=== PATIENT | female | born 1980 | race Caucasian/White ===

== ENCOUNTER 2017-02-25 09:28 | Observation (INO) | payer MEDICAID ==
[2017-02-25] MEDS ORDERED: RINGERS SOLUTION,LACTATED 1,000 ML IV PRN (10:51)
[2017-02-25] MEDS ORDERED: NA PHOS,M-B/NA PHOS,DI-BA (ADULT) 133 ML ENEMA PR ONE ×2 (10:56→12:00)
[2017-02-25] MEDS ORDERED: BETAMET ACET/BETAMET NA INJ 6 MG/1 ML ONE (12:17)
[2017-02-25] MEDS ORDERED: MORPHINE SULFATE 10 MG/ML INJ ONE (12:17)
[2017-02-25 12:55] LABS: APPEARANCE,URINE CLEAR; BILIRUBIN,URINE NEGATIVE (NEGATIVE); GLUCOSE, URINE NEGATIVE (NEGATIVE); KETONES,URINE 20 mg/dL (NEGATIVE); LEUKOCYTE ESTERASE,URINE NEGATIVE (NEGATIVE); NITRITE,URINE NEGATIVE (NEGATIVE); PROTEIN,URINE NEGATIVE (NEGATIVE); URINE SPECIFIC GRAVITY 1.004; UROBILINOGEN,URINE NEGATIVE mg/dL (<2.0)
[2017-02-25 13:10] LABS: URINE BARBITURATES SCREEN NEGATIVE; URINE METHADONE SCREEN NEGATIVE; URINE OPIATES LOW NEGATIVE; URINE PHENCYCLIDINE SCREEN NEGATIVE
[2017-02-25] MEDS ORDERED: MAGNESIUM SULFATE 100 ML IV ONE (13:50)
--- NOTE | 2017-02-25 13:52 | L&D Progress Notes ---
PROGRESS NOTES Datetime Report Generated by CPN: 02/25/2017 13:52 PROGRESS NOTE Impression: Labor Comment: Pt notes contractions still strong-will start magnesium for tocolysis and neuroprophylaxis as well as gbs prophylaxis and get admit labs. UA was nl and wet prep unremarkable. Discusse transfer if painful contractions persist. SIGNATURE SIGNATURE: [id number] Signature: with User ID: [email or web address]
[2017-02-25] MEDS ORDERED: AMPICILLIN SODIUM 2 GM in NORMAL SALINE 100 ML IV ONE (13:54)
[2017-02-25] MEDS ORDERED: MORPHINE SULFATE 10 MG/ML INJ IV ONE (14:00)
[2017-02-25] MEDS ORDERED: BETAMET ACET/BETAMET NA INJ 6 MG/1 ML IM ONE (14:00)
[2017-02-25] MEDS ORDERED: MAGNESIUM SULFATE 4 GM/100 ML RTUPB IV ONE (14:04)
[2017-02-25] MEDS ORDERED: AMPICILLIN SOD INJ 2 GM VIAL ONE (14:05)
[2017-02-25] MEDS ORDERED: LIDOCAINE 2% JELLY 5 ML TUBE ONE (14:07)
[2017-02-25 14:10] LABS: CHLAM PCR NOT DETECTED (NOT DETECT)
[2017-02-25 14:36] LABS: ABSOLUTE EOSINOPHILS # (AUTO) 0.2 10^3/uL (0.0-0.6); ABSOLUTE LYMPHOCYTES (AUTO) 1.3 10^3/uL (0.5-4.7); ABSOLUTE MONOCYTES (AUTO) 0.5 10^3/uL (0.1-1.4); BASOPHILS % (AUTO) 0.2 % (0-2); EOSINOPHILS % (AUTO) 1.6 % (0-6); HEMATOCRIT 29.3 % (36.0-47.0); HEMOGLOBIN 9.6 g/dL (12.0-15.5); HGB HCT DIFFERENCE -0.5; LYMPHOCYTES % (AUTO) 13.5 % (13-45); MEAN CORPUSCULAR HGB CONC 32.7 g/dL (32.0-36.0); MEAN CORPUSCULAR VOLUME 83 fl (80-97); MONOCYTES % (AUTO) 4.6 % (3-13); RED BLOOD COUNT 3.55 10^6/uL (3.72-5.28); RED CELL DISTRIBUTION WIDTH 14.4 % (11.5-14.0); SEGMENTED NEUTROPHILS % (AUTO) 80.1 % (42-78)
[2017-02-25] MEDS ORDERED: ONDANSETRON HCL INJ/PF 4 MG/2 ML SDV ONE ×2 (14:48→20:44)
[2017-02-25] MEDS: MAGNESIUM SULFATE 500 ML IV PRN (15:01)
[2017-02-25] MEDS: RINGERS SOLUTION,LACTATED 1,000 ML IV PRN (15:03)
[2017-02-25] MEDS ORDERED: LIDOCAINE 2% JELLY 5 ML TUBE TOP ONE (15:30)
--- NOTE | 2017-02-25 17:11 | RADIOLOGY REPORT (SQ) ---
EXAM DESCRIPTION: U/S OB LIMITED COMPLETED DATE/TIME: 02/25/2017 4:51 pm REASON FOR STUDY: 28wk IUP, Ctx, Cervical length COMPARISON: None. TECHNIQUE: Limited transvaginal grayscale ultrasound for evaluation of specific requested obstetrica l parameters. LIMITATIONS: None. FINDINGS: CERVICAL LENGTH: 5.0 cm Closed. ELYSIA: Not performed. FHR: Not evaluated. PRESENTATION: Not evaluated. OTHER: No other significant findings. IMPRESSION: Limited transvaginal ultrasound demonstrating a closed cervix measuring 5.0 cm. Trimester of : Reportedly third trimester - 28 weeks to delivery, although not assessed on t mariangel's examination. TECHNICAL DOCUMENTATION: JOB ID: [id number] [employer]- All Rights Reserved
[2017-02-25] MEDS ORDERED: AMPICILLIN SOD INJ 1 GM VIAL ONE (18:44)
[2017-02-25] MEDS: AMPICILLIN SODIUM 1 GM in NORMAL SALINE 50 ML IV SCH ×2 (18:50→22:04)
[2017-02-25] MEDS ORDERED: ACETAMINOPHEN 325 MG TABLET ONE (19:22)
[2017-02-25] MEDS: ACETAMINOPHEN 325 MG TABLET PO PRN (19:22)
[2017-02-25] MEDS: ONDANSETRON HCL INJ/PF 4 MG/2 ML SDV IV PRN (20:42)
[2017-02-25] MEDS ORDERED: ZOLPIDEM TARTRATE 5 MG TABLET PO PRN (21:51)
[2017-02-25] MEDS ORDERED: ZOLPIDEM TARTRATE 5 MG TABLET ONE (22:01)
[2017-02-26] MEDS: MAGNESIUM SULFATE 500 ML IV PRN ×2 (00:02→09:55)
[2017-02-26] MEDS: ACETAMINOPHEN 325 MG TABLET PO PRN ×2 (01:05→07:57)
[2017-02-26] MEDS ORDERED: ACETAMINOPHEN 325 MG TABLET ONE ×2 (01:07→07:48)
[2017-02-26] MEDS ORDERED: ONDANSETRON HCL INJ/PF 4 MG/2 ML SDV ONE ×2 (02:09→07:49)
[2017-02-26] MEDS: AMPICILLIN SODIUM 1 GM in NORMAL SALINE 50 ML IV SCH ×4 (02:12→14:24)
[2017-02-26] MEDS: ONDANSETRON HCL INJ/PF 4 MG/2 ML SDV IV PRN (02:12)
[2017-02-26] MEDS: RINGERS SOLUTION,LACTATED 1,000 ML IV PRN (05:41)
[2017-02-26] MEDS ORDERED: PROCHLORPERAZINE EDISYLATE INJ 10 MG/2 ML VIAL IV ONE (10:00)
[2017-02-26] MEDS ORDERED: BETAMET ACET/BETAMET NA INJ 6 MG/1 ML ONE (12:25)
[2017-02-26] MEDS ORDERED: BETAMET ACET/BETAMET NA INJ 6 MG/1 ML IM PRN (12:30)
[2017-02-26 14:48] VITALS: BP 84/48
--- NOTE | 2017-03-16 01:29 | HISTORY AND PHYSICAL E ---
History and Physical NAME: LOIS LYNNE : 1980 AGE: 36Y ADMITTED: 02/25/2017 ROOM: LR200 CHIEF COMPLAINT: Painful contractions. HISTORY OF PRESENT ILLNESS: This is a 36-year-old, G7, P4-0-2-4 with EDC of 05/18/2017, who was admitted at 28 weeks and 2 days. She had very regular contractions that palpated strong. REVIEW OF SYSTEMS: Unremarkable. PAST MEDICAL HISTORY: Significant for 4 vaginal deliveries. OBJECTIVE: For vital signs, see computer-generated record. The heart tones were category 1. Contractions were every 2-3 minutes initially. Abdomen was soft and nontender between contractions. The patient was slightly anemic on admission with hemoglobin of 9.6 and hematocrit of 29.3. Her urinalysis was negative for infection. Wet prep showed no trich or yeast. Her urine tox screen was negative. Her gonorrhea and chlamydia testing were negative. IMPRESSION: Intrauterine at 28 weeks and 2 days. PLAN: The patient was admitted and given tocolysis and neuro prophylaxis with magnesium, steroids for lung maturity, and GBS prophylaxis. She was informed of the possible need for transfer, should significant cervical change arise. DICTATING PHYSICIAN: MINI PAREDES M.D. [id number] PHY#: [id number] ID: [id number] JOB#: [id number] ACCT: [id number] cc:MINI PAREDES M.D. > MTDD
--- NOTE | 2017-04-11 16:57 | DISCHARGE SUMMARY E ---
Discharge Summary NAME: LOIS LYNNE : 1980 AGE: 36Y ADMITTED: 02/25/2017 DISCHARGED: 02/26/2017 REASON FOR ADMISSION: A 28-week 2-day intrauterine with labor. HISTORY AND PHYSICAL: See Dr. Hartmann's history and physical from February 25, 2017 for full details. HOSPITAL COURSE: The patient is admitted to the hospital at 28 weeks and 2 days with strong regular uterine contractions. She was admitted for labor. She was started on magnesium sulfate and given Celestone steroid for lung maturity. She was maintained on the magnesium sulfate for 24 hours, which resolved her contractions. She received her second dose of Celestone. Following this patient reports no more contractions and has had no cervical change during her stay at the hospital. She is stable and, therefore, is discharged home. DISCHARGE INSTRUCTIONS: Discharge patient home. Diet is regular. Level of activity is home rest and pelvic rest. Follow-up interval is 1 week with [facility]. SPECIAL INSTRUCTIONS: Patient instructed to call MD if vaginal bleeding, loss of fluid or signs and symptoms of labor occur. MEDICATIONS ON DISCHARGE: vitamins. DICTATING PHYSICIAN: Sixto Egan DO [id number] PHY#: [id number] ID: [id number] JOB#: [id number] ACCT: [id number] cc:MIIN HARTMANN M.D. Sixto Egan D.O. >
== END 2017-02-26 15:21 | disposition home or self-care (01) ==
LOC: LC 09:28 → LR 14:50
PROVIDERS: ADMIT Specialist; ATTEND Specialist
PROC: 4A0HXCZ Measurement of Products of Conception, Cardiac Rate, External Approach (ICD-10-PCS; principal; 2017-02-25)
DX: O60.03 Preterm labor without delivery, third trimester (principal); Z3A.28 28 weeks gestation of pregnancy
CPT/HCPCS: 94760; 86900; 86901; 36415; 87210; 86850; 85025; 86592; 81001; 87081; 80307; 87491; 87591; 76815; 59025; G0378 ×2; G0379; J3475; J0290 ×3; J3490 ×5; J2270; J0702 ×2; J0780; J2405 ×2

== ENCOUNTER 2017-02-28 16:16 | Outpatient (CLI) | payer MEDICAID ==
[2017-02-28 16:45] LABS: APPEARANCE,URINE CLEAR; BILIRUBIN,URINE NEGATIVE (NEGATIVE); GLUCOSE, URINE NEGATIVE (NEGATIVE); KETONES,URINE NEGATIVE (NEGATIVE); LEUKOCYTE ESTERASE,URINE NEGATIVE (NEGATIVE); NITRITE,URINE NEGATIVE (NEGATIVE); PROTEIN,URINE NEGATIVE (NEGATIVE); URINE SPECIFIC GRAVITY 1.028
[2017-02-28] MEDS ORDERED: RINGERS SOLUTION,LACTATED 1,000 ML IV ONE (16:55)
[2017-02-28] MEDS ORDERED: RINGERS SOLUTION,LACTATED 1,000 ML IV PRN (16:55)
[2017-02-28 17:07] LABS: URINE BARBITURATES SCREEN NEGATIVE; URINE METHADONE SCREEN NEGATIVE; URINE OPIATES LOW NEGATIVE; URINE PHENCYCLIDINE SCREEN NEGATIVE
[2017-02-28 17:17] LABS: AMNISURE (ROM) NEGATIVE (NEGATIVE)
--- NOTE | 2017-02-28 18:01 | RADIOLOGY REPORT (SQ) ---
EXAM DESCRIPTION: U/S OB LIMITED COMPLETED DATE/TIME: 02/28/2017 5:53 pm REASON FOR STUDY: iup 28+5 abdominal pain- cx length, presentation, elysia COMPARISON: 02/25/2017 TECHNIQUE: Limited transvaginal grayscale ultrasound for evaluation of specific requested obstetrica l parameters. LIMITATIONS: None. FINDINGS: CERVICAL LENGTH: 4.6 cm Closed. ELYSIA: 14.3 cm cm. FHR: 132 beats per minute. PRESENTATION: Breech OTHER: No other significant findings. IMPRESSION: LIMITED OBSTETRICAL ULTRASOUND WITH MEASURED PARAMETERS DELINEATED ABOVE. Trimester of : Third trimester - 28 weeks to delivery. TECHNICAL DOCUMENTATION: JOB ID: [id number] [employer]- All Rights Reserved
== END 2017-02-28 19:22 | disposition home or self-care (01) ==
LOC: LC 16:16
PROVIDERS: ATTEND Specialist
PROC: 4A1HXCZ Monitoring of Products of Conception, Cardiac Rate, External Approach (ICD-10-PCS; principal; 2017-02-28)
DX: O26.893 Other specified pregnancy related conditions, third trimester (principal); R10.9 Unspecified abdominal pain; O09.523 Supervision of elderly multigravida, third trimester; Z3A.28 28 weeks gestation of pregnancy
CPT/HCPCS: 76815; 80307; 81001; 84112; 87210

== ENCOUNTER 2017-03-16 16:09 | Outpatient (CLI) | payer MEDICAID ==
[2017-03-16 17:12] LABS: APPEARANCE,URINE CLEAR; BILIRUBIN,URINE NEGATIVE (NEGATIVE); GLUCOSE, URINE NEGATIVE (NEGATIVE); KETONES,URINE 80 mg/dL (NEGATIVE); LEUKOCYTE ESTERASE,URINE NEGATIVE (NEGATIVE); NITRITE,URINE NEGATIVE (NEGATIVE); PROTEIN,URINE NEGATIVE (NEGATIVE); URINE SPECIFIC GRAVITY 1.003; UROBILINOGEN,URINE NEGATIVE mg/dL (<2.0)
[2017-03-16 17:33] LABS: URINE BARBITURATES SCREEN NEGATIVE; URINE METHADONE SCREEN NEGATIVE; URINE OPIATES LOW NEGATIVE; URINE PHENCYCLIDINE SCREEN NEGATIVE
[2017-03-16] MEDS ORDERED: NIFEDIPINE 10 MG CAPSULE ONE (19:42)
--- NOTE | 2017-03-16 21:35 | Non Stress Test Report ---
Non Stress Test Datetime Report Generated by CPN: 03/16/2017 21:35 DEMOGRAPHIC Test Number: 1 EGA NST: 31.0 INDICATION Indication for Study: Ordered by Provider MONITORING Monitor Explained: Monitor Explained; Test Explained; Patient Verbalized Understanding Time on Monitor: 03/16/2017 16:32 Time off Monitor: 03/16/2017 21:06 NST Duration: 274 NST INTERVENTIONS NST Interventions: PO Hydration; Reposition Patient Physician Notified NST: Dr. Sousa BABY A: [id number] BABY A Movement : Present Contraction Frequency : 2-6 FHR Baseline : 125 Accelerations : 15X15 Variability : Moderate 6-25bpm NST Review: Meets Criteria for Reactive NST NST Review and Verified By : YAMILETH Dowd Results: Reactive NST COMMENTS NST Comments: Per Dr. Sousa do NST due to pt jemal. NST REPORT Report Trigger: Send Report
--- NOTE | 2017-03-16 23:47 | RADIOLOGY REPORT (SQ) ---
EXAM DESCRIPTION: U/S OB LIMITED COMPLETED DATE/TIME: 03/16/2017 6:53 pm REASON FOR STUDY: cervical length pre term contractions COMPARISON: None. TECHNIQUE: Limited transvaginal and transabdominal grayscale ultrasound for evaluation of specific r equested obstetrical parameters. LIMITATIONS: None. FINDINGS: CERVICAL LENGTH: 4.6 cm Closed. ELYSIA: Not performed FHR: 133 beats per minute. PRESENTATION: Transverse. OTHER: No other significant findings. IMPRESSION: LIMITED OBSTETRICAL ULTRASOUND WITH MEASURED PARAMETERS DELINEATED ABOVE. Trimester of : Third trimester - 28 weeks to delivery. TECHNICAL DOCUMENTATION: JOB ID: [id number] [employer]- All Rights Reserved
== END 2017-03-16 21:21 | disposition home or self-care (01) ==
LOC: LC 16:09
PROVIDERS: ATTEND Student in an Organized Health Care Education/Training Program
DX: O47.03 False labor before 37 completed weeks of gestation, third trimester (principal); R10.9 Unspecified abdominal pain; Z3A.31 31 weeks gestation of pregnancy
CPT/HCPCS: 59025; 81001; 80307; 76815; J3490

== ENCOUNTER 2017-03-30 14:15 | Outpatient (CLI) | payer MEDICAID | END 2017-03-30 15:59 | disposition home or self-care (01) | LOC: LC 14:15 | PROVIDERS: ATTEND Obstetrics & Gynecology | PROC: 4A1HXCZ Monitoring of Products of Conception, Cardiac Rate, External Approach (ICD-10-PCS; principal; 2017-03-30) | DX: O40.3XX0 Polyhydramnios, third trimester, not applicable or unspecified (principal); O09.523 Supervision of elderly multigravida, third trimester; O09.293 Supervision of pregnancy with other poor reproductive or obstetric history, third trimester; O47.03 False labor before 37 completed weeks of gestation, third trimester; Z3A.33 33 weeks gestation of pregnancy | CPT/HCPCS: 59025 ==

== ENCOUNTER 2017-04-13 11:11 | Outpatient (CLI) | payer MEDICAID ==
--- NOTE | 2017-04-13 11:44 | Non Stress Test Report ---
Non Stress Test Datetime Report Generated by CPN: 04/13/2017 11:43 DEMOGRAPHIC EGA NST: 35.0 EGA NST: 33.0 INDICATION Indication for Study: Polyhydramnios; Diabetes Mellitus; Other Indication for Study: Polyhydramnios; Ordered by Provider Indication for Study (NST) Other: AMA VITAL SIGNS Temperature - NST: 99.5 Pulse - NST: 83 NBPSYS NST: 100 NBPDIA NST: 54 MONITORING Monitor Explained: Monitor Explained; Test Explained; Patient Verbalized Understanding Monitor Explained: Monitor Explained; Test Explained; Patient Verbalized Understanding Time on Monitor: 04/13/2017 11:23 Time on Monitor: 03/30/2017 14:30 Time off Monitor: 04/13/2017 11:43 Time off Monitor: 03/30/2017 15:43 NST Duration: 20 NST Duration: 73 NST INTERVENTIONS NST Interventions: PO Hydration; Reposition Patient NST Interventions: None Physician Notified NST: Dr Egan Physician Notified NST: AAta Emmel CNM BABY A: [id number] BABY A Movement : Present Movement : Present Movement : Present Contraction Frequency : x1 Contraction Frequency : 0 FHR Baseline : 135 FHR Baseline : 135 Accelerations : 15X15 Accelerations : 15X15 Decelerations : None Decelerations : None Variability : Moderate 6-25bpm Variability : Moderate 6-25bpm Variability : Moderate 6-25bpm NST Review: Meets Criteria for Reactive NST NST Review: Meets Criteria for Reactive NST NST Review: Meets Criteria for Reactive NST NST Review and Verified By : Vaughn Candelaria [facility] NST Review and Verified By : Vaughn Candelaria [facility] NST Results: Reactive NST Results: Reactive NST COMMENTS NST Comments: -per CNM ok for d/c -D/C instructions given to pt including [place] [employer]. Pt v/u and had no further questions at this time NST REPORT Report Trigger: Send Report
== END 2017-04-13 11:47 | disposition home or self-care (01) ==
LOC: LC 11:11
PROVIDERS: ATTEND Obstetrics & Gynecology
PROC: 4A1HXCZ Monitoring of Products of Conception, Cardiac Rate, External Approach (ICD-10-PCS; principal; 2017-04-13)
DX: O40.3XX0 Polyhydramnios, third trimester, not applicable or unspecified (principal); O24.419 Gestational diabetes mellitus in pregnancy, unspecified control; Z3A.35 35 weeks gestation of pregnancy
CPT/HCPCS: 59025

== ENCOUNTER → 2017-04-17 | Outpatient (CLI) | payer MEDICAID ==
[2017-04-17 17:57] LABS: ABSOLUTE EOSINOPHILS # (AUTO) 0.1 10^3/uL (0.0-0.6); ABSOLUTE LYMPHOCYTES (AUTO) 1.7 10^3/uL (0.5-4.7); ABSOLUTE MONOCYTES (AUTO) 0.6 10^3/uL (0.1-1.4); ABSOLUTE NEUT (AUTO) 4.4 10^3/uL (1.7-8.2); BASOPHILS % (AUTO) 0.3 % (0-2); EOSINOPHILS % (AUTO) 1.8 % (0-6); HEMATOCRIT 27.4 % (36.0-47.0); HGB HCT DIFFERENCE -0.4; LYMPHOCYTES % (AUTO) 24.6 % (13-45); MEAN CORPUSCULAR HEMOGLOBIN 25.2 pg (27.0-33.4); MEAN CORPUSCULAR HGB CONC 32.9 g/dL (32.0-36.0); MEAN CORPUSCULAR VOLUME 77 fl (80-97); MONOCYTES % (AUTO) 8.7 % (3-13); RED BLOOD COUNT 3.58 10^6/uL (3.72-5.28); RED CELL DISTRIBUTION WIDTH 15.5 % (11.5-14.0); SEGMENTED NEUTROPHILS % (AUTO) 64.6 % (42-78); WHITE BLOOD COUNT 6.9 10^3/uL (4.0-10.5)
[2017-04-17 18:19] LABS: ALANINE AMINOTRANSFERASE 26 U/L (9-52); ALBUMIN 3.3 g/dL (3.5-5.0); ALKALINE PHOSPHATASE 119 U/L (38-126); ANION GAP 7 (5-19); ASPARTATE AMINO TRANSFERASE 18 U/L (14-36); BILIRUBIN,DIRECT 0.3 mg/dL (0.0-0.4); BILIRUBIN,TOTAL 0.3 mg/dL (0.2-1.3); BLOOD UREA NITROGEN 7 mg/dL (7-20); CALCIUM 9.3 mg/dL (8.4-10.2); CARBON DIOXIDE 22 mmol/L (22-30); CHLORIDE 103 mmol/L (98-107); GLUCOSE 92 mg/dL (75-110); LDH 308 U/L (313-618); POTASSIUM 3.8 mmol/L (3.6-5.0); SODIUM 132.1 mmol/L (137-145); TOTAL PROTEIN 5.9 g/dL (6.3-8.2)
[2017-04-17 18:30] LABS: URINE CREATININE 59.3 mg/dL (16-327); URINE PROTEIN 8.2 mg/dL (<12)
[2017-04-18 11:59] LABS: CHLAM PCR NOT DETECTED (NOT DETECT)
== END ==
LOC: OD 17:04
PROVIDERS: ATTEND Specialist
DX: Z36 Encounter for antenatal screening of mother (principal); O14.93 Unspecified pre-eclampsia, third trimester
CPT/HCPCS: 36415; 80053; 82570; 83615; 84156; 84550; 85025; 87081; 87491; 87591

== ENCOUNTER 2017-04-23 07:41 | Outpatient (CLI) | payer MEDICAID ==
[2017-04-23 08:30] LABS: APPEARANCE,URINE CLEAR; BILIRUBIN,URINE NEGATIVE (NEGATIVE); GLUCOSE, URINE NEGATIVE (NEGATIVE); KETONES,URINE 80 mg/dL (NEGATIVE); LEUKOCYTE ESTERASE,URINE NEGATIVE (NEGATIVE); NITRITE,URINE NEGATIVE (NEGATIVE); PROTEIN,URINE NEGATIVE (NEGATIVE); URINE SPECIFIC GRAVITY 1.005; UROBILINOGEN,URINE NEGATIVE mg/dL (<2.0)
[2017-04-23 08:59] LABS: URINE BARBITURATES SCREEN NEGATIVE; URINE METHADONE SCREEN NEGATIVE; URINE OPIATES LOW NEGATIVE; URINE PHENCYCLIDINE SCREEN NEGATIVE
[2017-04-23] MEDS ORDERED: HYDROXYZINE PAMOATE 50 MG CAPSULE ONE (09:22)
--- NOTE | 2017-04-23 09:49 | Non Stress Test Report ---
Non Stress Test Datetime Report Generated by CPN: 04/23/2017 09:48 DEMOGRAPHIC EGA NST: 36.3 INDICATION Indication for Study: Decreased Movement; Polyhydramnios; Other Indication for Study (NST) Other: contractions MONITORING Monitor Explained: Monitor Explained; Test Explained; Patient Verbalized Understanding Time on Monitor: 04/23/2017 08:24 Time off Monitor: 04/23/2017 09:33 Time off Monitor: 04/23/2017 09:33 NST Duration: 69 NST INTERVENTIONS NST Interventions: PO Hydration; Reposition Patient Physician Notified NST: Arnulfo BABY A: [id number] BABY A Movement : Present Contraction Frequency : 4-10 Contraction Frequency : 4-10 FHR Baseline : 115 Accelerations : 15X15 Decelerations : None Variability : Moderate 6-25bpm NST Review: Meets Criteria for Reactive NST NST Review and Verified By : YAMILETH Pandya Results: Reactive NST REPORT Report Trigger: Send Report
== END 2017-04-23 09:40 | disposition home or self-care (01) ==
LOC: LC 07:41
PROVIDERS: ATTEND Obstetrics & Gynecology
PROC: 4A1HXCZ Monitoring of Products of Conception, Cardiac Rate, External Approach (ICD-10-PCS; principal; 2017-04-23)
DX: O36.8130 Decreased fetal movements, third trimester, not applicable or unspecified (principal); O40.3XX0 Polyhydramnios, third trimester, not applicable or unspecified; O47.03 False labor before 37 completed weeks of gestation, third trimester; O09.523 Supervision of elderly multigravida, third trimester; Z3A.36 36 weeks gestation of pregnancy
CPT/HCPCS: 59025; 80307; 81005; 82962

== ENCOUNTER 2017-04-24 16:52 | Outpatient (CLI) | payer MEDICAID ==
[2017-04-24 17:59] LABS: ABSOLUTE EOSINOPHILS # (AUTO) 0.1 10^3/uL (0.0-0.6); ABSOLUTE LYMPHOCYTES (AUTO) 1.5 10^3/uL (0.5-4.7); ABSOLUTE MONOCYTES (AUTO) 0.6 10^3/uL (0.1-1.4); ABSOLUTE NEUT (AUTO) 3.9 10^3/uL (1.7-8.2); BASOPHILS % (AUTO) 0.4 % (0-2); EOSINOPHILS % (AUTO) 1.5 % (0-6); HEMATOCRIT 25.3 % (36.0-47.0); HEMOGLOBIN 8.3 g/dL (12.0-15.5); HGB HCT DIFFERENCE -0.4; LYMPHOCYTES % (AUTO) 23.9 % (13-45); MEAN CORPUSCULAR HEMOGLOBIN 25.1 pg (27.0-33.4); MEAN CORPUSCULAR HGB CONC 32.6 g/dL (32.0-36.0); MEAN CORPUSCULAR VOLUME 77 fl (80-97); MONOCYTES % (AUTO) 10.3 % (3-13); RED CELL DISTRIBUTION WIDTH 15.5 % (11.5-14.0); SEGMENTED NEUTROPHILS % (AUTO) 63.9 % (42-78); WHITE BLOOD COUNT 6.2 10^3/uL (4.0-10.5)
[2017-04-24 18:02] LABS: AMORPHOUS SEDIMENT,URINE TRACE /HPF; APPEARANCE,URINE TURBID; BILIRUBIN,URINE SMALL (NEGATIVE); GLUCOSE, URINE NEGATIVE (NEGATIVE); KETONES,URINE NEGATIVE (NEGATIVE); LEUKOCYTE ESTERASE,URINE NEGATIVE (NEGATIVE); NITRITE,URINE NEGATIVE (NEGATIVE); PROTEIN,URINE 30 mg/dL (NEGATIVE); URINE SPECIFIC GRAVITY 1.032
[2017-04-24 18:16] LABS: URINE BARBITURATES SCREEN NEGATIVE; URINE METHADONE SCREEN NEGATIVE; URINE OPIATES LOW NEGATIVE; URINE PHENCYCLIDINE SCREEN NEGATIVE
[2017-04-24 18:27] LABS: ALANINE AMINOTRANSFERASE 19 U/L (9-52); ALBUMIN 2.9 g/dL (3.5-5.0); ALKALINE PHOSPHATASE 117 U/L (38-126); ANION GAP 9 (5-19); ASPARTATE AMINO TRANSFERASE 20 U/L (14-36); BILIRUBIN,DIRECT 0.3 mg/dL (0.0-0.4); BILIRUBIN,TOTAL 0.3 mg/dL (0.2-1.3); BLOOD UREA NITROGEN 8 mg/dL (7-20); CALCIUM 8.7 mg/dL (8.4-10.2); CARBON DIOXIDE 21 mmol/L (22-30); CHLORIDE 107 mmol/L (98-107); CREATININE RESULT 0.54 mg/dL (0.52-1.25); GLUCOSE 106 mg/dL (75-110); LDH 278 U/L (313-618); POTASSIUM 3.6 mmol/L (3.6-5.0); SODIUM 137.3 mmol/L (137-145); TOTAL PROTEIN 5.5 g/dL (6.3-8.2); URIC ACID 4.9 mg/dL (2.5-7.0)
[2017-04-24 18:55] LABS: URINE CREATININE 335.1 mg/dL (16-327)
[2017-04-24 19:00] LABS: URINE PROTEIN < 5.0 mg/dL (<12)
--- NOTE | 2017-04-24 19:19 | Non Stress Test Report ---
Non Stress Test Datetime Report Generated by CPN: 04/24/2017 19:19 DEMOGRAPHIC EGA NST: 36.4 INDICATION Indication for Study: Ordered by Provider Indication for Study (NST) Other: lc pih VITAL SIGNS Temperature - NST: 98.3 MONITORING Monitor Explained: Monitor Explained; Test Explained; Patient Verbalized Understanding Time on Monitor: 04/24/2017 17:00 Time off Monitor: 04/24/2017 19:07 NST Duration: 127 NST INTERVENTIONS NST Interventions: PO Hydration; Reposition Patient Physician Notified NST: Dr Egan BABY A: [id number] BABY A Movement : Present Contraction Frequency : rare FHR Baseline : 120 Accelerations : 15X15 Decelerations : None Variability : Moderate 6-25bpm NST Review: Meets Criteria for Reactive NST NST Review and Verified By : IGNACIO HANSON RN NST Results: Reactive NST REPORT Report Trigger: Send Report
== END 2017-04-24 19:25 | disposition home or self-care (01) ==
LOC: LC 16:52
PROVIDERS: ATTEND Obstetrics & Gynecology
PROC: 4A1HXCZ Monitoring of Products of Conception, Cardiac Rate, External Approach (ICD-10-PCS; principal; 2017-04-24)
DX: O14.93 Unspecified pre-eclampsia, third trimester (principal); Z3A.36 36 weeks gestation of pregnancy
CPT/HCPCS: 36415; 59025; 80053; 80307; 81001; 82570; 83615; 84156; 84550; 85025

== ENCOUNTER 2017-04-25 12:50 | Outpatient (CLI) | payer MEDICAID ==
[2017-04-25 14:30] LABS: APPEARANCE,URINE SLIGHTLY-CLOUDY; BILIRUBIN,URINE NEGATIVE (NEGATIVE); GLUCOSE, URINE NEGATIVE (NEGATIVE); KETONES,URINE NEGATIVE (NEGATIVE); LEUKOCYTE ESTERASE,URINE NEGATIVE (NEGATIVE); NITRITE,URINE NEGATIVE (NEGATIVE); PROTEIN,URINE NEGATIVE (NEGATIVE); URINE SPECIFIC GRAVITY 1.021
[2017-04-25 14:49] LABS: URINE BARBITURATES SCREEN NEGATIVE; URINE METHADONE SCREEN NEGATIVE; URINE OPIATES LOW NEGATIVE; URINE PHENCYCLIDINE SCREEN NEGATIVE
--- NOTE | 2017-04-25 16:25 | RADIOLOGY REPORT (SQ) ---
EXAM DESCRIPTION: U/S OB LIMITED COMPLETED DATE/TIME: 04/25/2017 4:11 pm REASON FOR STUDY: Polyhydramnios--ELYSIA, position,EFW COMPARISON: 03/16/2017, 02/28/2017, 02/25/2017 limited Ob ultrasound TECHNIQUE: Limited transabdominal grayscale ultrasound for evaluation of specific requested obstetri vee parameters. LIMITATIONS: None. FINDINGS: Estimated weight by multiple measurements is 3235 g, at the 63rd percentile for gest ational age of 38 weeks 0 days ELYSIA: 17.9 cm. FHR: 135 beats per minute. PRESENTATION: Cephalic. OTHER: No other significant findings. IMPRESSION: Amniotic fluid index 17.9 cm. Estimated weight 3235 g. Trimester of : Third trimester - 28 weeks to delivery. TECHNICAL DOCUMENTATION: JOB ID: [id number] [employer]- All Rights Reserved
--- NOTE | 2017-04-25 17:11 | XCELERA REPORT ---
[address] [address] Transthoracic Echocardiogram Report Name: LOIS LYNNE Age: 36 yrs Gender: Female : 1980 Patient Status: Outpatient Patient Location: Study Date: 04/25/2017 02:22 PM Height: 67 in Weight: 274 lb BSA: 2.3 m2 Procedure: A complete two-dimensional transthoracic echocardiogram was performed (2D, M-mode, spectral and color flow Doppler). The study was technically difficult with many images being suboptimal in quality. Reason For Study: SOB-increased edema Ordering Physician: DENNISE STERLING Performed By: Loretta Cortez Interpretation Summary The left ventricular ejection fraction is normal. Doppler measurements suggest normal left ventricular diastolic function There is mild concentric left ventricular hypertrophy. The left ventricle is grossly normal size. No regional wall motion abnormalities noted. The right ventricular systolic function is normal. The right atrium is normal in size The left atrial size is normal. There is a trace amount of mitral regurgitation There is no mitral valve stenosis. There is no aortic valve stenosis No aortic regurgitation is present. There is a trace or physiologic amount of tricuspid regurgitation Tricuspid regurgitation jet envelope not well defined to measure RV systolic pressure accurately. The aortic root is not well visualized but is probably normal size. The inferior vena cava was not well visualized There is no pericardial effusion. MMode/2D Measurements & Calculations RVDd: 2.7 cm LVIDd: 5.9 cmFS: 35.2 % Ao root diam: 2.8 cm IVSd: 1.1 cm LVIDs: 3.8 cmEDV(Teich): 170.3 ml LVPWd: 1.1 cmESV(Teich): 61.9 ml Ao root area: 6.4 cm2 EF(Teich): 63.7 % LVOT diam: 2.3 cm LVOT area: 4.2 cm2 Doppler Measurements & Calculations MV E max tammy: MV dec slope: Ao V2 max: LV V1 max P.4 cm/sec 394.0 cm/sec2 161.4 cm/sec 5.9 mmHg MV A max tammy: MV dec time: Ao max PG: LV V1 max: 60.3 cm/sec 0.20 sec 10.4 mmHg 121.7 cm/sec MV E/A: 1.3 WILFRED(V,D): 3.2 cm2 PA V2 max: TR max tammy: 81.9 cm/sec 186.2 cm/sec PA max PG: TR max P.9 mmHg 2.7 mmHg Left Ventricle The left ventricle is grossly normal size. There is mild concentric left ventricular hypertrophy. The left ventricular ejection fraction is normal. Doppler measurements suggest normal left ventricular diastolic function. No regional wall motion abnormalities noted. Right Ventricle The right ventricle is grossly normal size. There is normal right ventricular wall thickness. The right ventricular systolic function is normal. Atria The right atrium is normal in size. The left atrial size is normal. Interarterial septum not well visualized and not well dopplered. Cannot comment on ASD/PFO presence. Mitral Valve The mitral valve is grossly normal. There is no mitral valve stenosis. There is a trace amount of mitral regurgitation. Aortic Valve The aortic valve is grossly normal. There is no aortic valve stenosis. No aortic regurgitation is present. Tricuspid Valve The tricuspid valve is not well visualized, but is grossly normal. There is no tricuspid stenosis. There is a trace or physiologic amount of tricuspid regurgitation. Tricuspid regurgitation jet envelope not well defined to measure RV systolic pressure accurately. Pulmonic Valve The pulmonic valve is not well visualized. Great Vessels The aortic root is not well visualized but is probably normal size. The inferior vena cava was not well visualized. Effusions There is no pericardial effusion. : DENNISE STERLING Shyamal
--- NOTE | 2017-04-25 18:54 | Non Stress Test Report ---
Non Stress Test Datetime Report Generated by CPN: 04/25/2017 18:53 DEMOGRAPHIC EGA NST: 36.5 INDICATION Indication for Study: Ordered by Provider MONITORING Monitor Explained: Monitor Explained; Test Explained; Patient Verbalized Understanding Time on Monitor: 04/25/2017 13:28 Time off Monitor: 04/25/2017 14:04 NST Duration: 36 NST INTERVENTIONS NST Interventions: PO Hydration Physician Notified NST: Rausch BABY A: [id number] BABY A Movement : Present; Decreased Contraction Frequency : occasional FHR Baseline : 155 Accelerations : 15X15 Decelerations : None Variability : Moderate 6-25bpm NST Review: Meets Criteria for Reactive NST NST Review and Verified By : Beckie Hany RNC NST Results: Reactive NST REPORT Report Trigger: Send Report
--- NOTE | 2017-04-26 12:15 | XCELERA REPORT ---
[address] [address] Lower Extremity Venous Evaluation Name: LOIS LYNNE Age: 36 yrs Gender: Female : 1980 Patient Status: Outpatient Patient Location: Study Date: 04/25/2017 02:42 PM Procedure: Color flow and duplex imaging bilaterally of the veins of the lower extremities as well as the Common Femoral veins. Reason For Study: 36+6 SOB, left leg pain, pos farooq sign L leg Ordering Physician: DENNISE RAUSCH Performed By: Loretta Cortez Right Sided Venous Evaluation Normal vessel filling wall to wall, compression and augmentation as well as Colour flow down to the infrageniculate veins. Left Sided Venous Evaluation Normal vessel filling wall to wall, compression and augmentation as well as Colour flow down to the infrageniculate veins. Critical Findings Discussed with Dr Rausch. Interpretation Summary No duplex evidence of DVT or obstruction in the bilateral lower extremities. : DENNISE RAUSCH > Hua Li
== END 2017-04-25 18:25 | disposition home or self-care (01) ==
LOC: LC 12:50
PROVIDERS: ATTEND Obstetrics & Gynecology
PROC: 4A1HXCZ Monitoring of Products of Conception, Cardiac Rate, External Approach (ICD-10-PCS; principal; 2017-04-25)
DX: O40.3XX0 Polyhydramnios, third trimester, not applicable or unspecified (principal); O36.8130 Decreased fetal movements, third trimester, not applicable or unspecified; O99.89 Other specified diseases and conditions complicating pregnancy, childbirth and the puerperium; M79.605 Pain in left leg; O09.523 Supervision of elderly multigravida, third trimester; Z3A.36 36 weeks gestation of pregnancy
CPT/HCPCS: 59025; 76815; 80307; 81001; 93306; 93970; 94760

== ENCOUNTER 2017-04-27 16:32 | Inpatient (IN) | payer MEDICAID ==
[2017-04-27] MEDS ORDERED: RINGERS SOLUTION,LACTATED 1,000 ML IV ONE (17:14)
[2017-04-27 17:30] LABS: APPEARANCE,URINE CLEAR; BILIRUBIN,URINE NEGATIVE (NEGATIVE); GLUCOSE, URINE NEGATIVE (NEGATIVE); KETONES,URINE NEGATIVE (NEGATIVE); LEUKOCYTE ESTERASE,URINE TRACE (NEGATIVE); NITRITE,URINE NEGATIVE (NEGATIVE); PROTEIN,URINE NEGATIVE (NEGATIVE); URINE SPECIFIC GRAVITY 1.006; UROBILINOGEN,URINE NEGATIVE mg/dL (<2.0)
[2017-04-27 17:41] LABS: URINE BARBITURATES SCREEN NEGATIVE; URINE METHADONE SCREEN NEGATIVE; URINE OPIATES LOW NEGATIVE; URINE PHENCYCLIDINE SCREEN NEGATIVE
[2017-04-27 18:03] LABS: URINE CREATININE 52.4 mg/dL (16-327); URINE PROTEIN 8.5 mg/dL (<12)
[2017-04-27 18:12] LABS: ABSOLUTE EOSINOPHILS # (AUTO) 0.1 10^3/uL (0.0-0.6); ABSOLUTE LYMPHOCYTES (AUTO) 1.7 10^3/uL (0.5-4.7); ABSOLUTE MONOCYTES (AUTO) 0.6 10^3/uL (0.1-1.4); BASOPHILS % (AUTO) 0.4 % (0-2); EOSINOPHILS % (AUTO) 1.8 % (0-6); HEMATOCRIT 25.7 % (36.0-47.0); HEMOGLOBIN 8.4 g/dL (12.0-15.5); HGB HCT DIFFERENCE -0.5; LYMPHOCYTES % (AUTO) 25.7 % (13-45); MEAN CORPUSCULAR HEMOGLOBIN 25.1 pg (27.0-33.4); MEAN CORPUSCULAR HGB CONC 32.6 g/dL (32.0-36.0); MEAN CORPUSCULAR VOLUME 77 fl (80-97); RED BLOOD COUNT 3.33 10^6/uL (3.72-5.28); RED CELL DISTRIBUTION WIDTH 15.8 % (11.5-14.0); SEGMENTED NEUTROPHILS % (AUTO) 62.1 % (42-78); WHITE BLOOD COUNT 6.4 10^3/uL (4.0-10.5)
[2017-04-27 18:28] LABS: ALANINE AMINOTRANSFERASE 18 U/L (9-52); ALKALINE PHOSPHATASE 125 U/L (38-126); ANION GAP 9 (5-19); ASPARTATE AMINO TRANSFERASE 22 U/L (14-36); BILIRUBIN,DIRECT 0.4 mg/dL (0.0-0.4); BILIRUBIN,TOTAL 0.4 mg/dL (0.2-1.3); BLOOD UREA NITROGEN 6 mg/dL (7-20); CALCIUM 9.1 mg/dL (8.4-10.2); CARBON DIOXIDE 23 mmol/L (22-30); CHLORIDE 105 mmol/L (98-107); CREATININE RESULT 0.47 mg/dL (0.52-1.25); GLUCOSE 106 mg/dL (75-110); LDH 362 U/L (313-618); POTASSIUM 4.3 mmol/L (3.6-5.0); TOTAL PROTEIN 5.6 g/dL (6.3-8.2); URIC ACID 4.3 mg/dL (2.5-7.0)
[2017-04-27] MEDS ORDERED: ACETAMINOPHEN 325 MG TABLET ONE (19:35)
[2017-04-27] MEDS ORDERED: DINOPROSTONE 10 MG VAGINAL INSERT.SR ONE (19:36)
[2017-04-27] MEDS ORDERED: ACETAMINOPHEN 325 MG TABLET PO ONE (19:45)
[2017-04-27] MEDS ORDERED: ONDANSETRON HCL 8 MG TABLET PO ONE (21:15)
[2017-04-27] MEDS ORDERED: ONDANSETRON 4 MG TAB.RAPDIS ONE (21:19)
[2017-04-27] MEDS ORDERED: ONDANSETRON HCL 8 MG TABLET ONE (21:23)
[2017-04-27] MEDS ORDERED: ZOLPIDEM TARTRATE 5 MG TABLET PO ONE (23:29)
[2017-04-27] MEDS ORDERED: ZOLPIDEM TARTRATE 5 MG TABLET ONE (23:31)
[2017-04-28] MEDS: ACETAMINOPHEN 325 MG TABLET PO PRN ×3 (02:19→10:44)
[2017-04-28] MEDS ORDERED: ACETAMINOPHEN 325 MG TABLET ONE ×3 (02:20→10:36)
[2017-04-28] MEDS ORDERED: ONDANSETRON 4 MG TAB.RAPDIS PO ONE (04:38)
[2017-04-28] MEDS ORDERED: ONDANSETRON 4 MG TAB.RAPDIS ONE ×2 (04:43→10:36)
[2017-04-28] MEDS ORDERED: OXYTOCIN/NORMAL SALINE 20 UNIT/1,000 ML RTUINJ ONE ×2 (10:00→10:57)
[2017-04-28] MEDS ORDERED: ACETAMINOPHEN 325 MG TABLET PO PRN (10:37)
[2017-04-28] MEDS ORDERED: BENZOIN/ALOE VERA/STORAX/TOLU TINCTURE 60 ML TP ONE (10:38)
[2017-04-28] MEDS ORDERED: DIPHENHYDRAMINE HCL 50 MG/ML VIAL IV PRN (10:38)
[2017-04-28] MEDS ORDERED: FENTANYL/BUPIVACAINE/NS/PF 100 ML EPI PRN (10:38)
[2017-04-28] MEDS ORDERED: EPHEDRINE SULFATE INJ 50 MG/1 ML AMPULE IV PRN (10:38)
[2017-04-28] MEDS ORDERED: BUPIVACAINE HCL 0.25 % INJ/PF (2.5 MG/1 ML) 30 ML VIAL INFIL ONE (10:38)
[2017-04-28] MEDS ORDERED: FENTANYL/BUPIVACAINE/NS/PF 200 MCG/100 ML RTUINJ EPI PRN (10:56)
[2017-04-28] MEDS ORDERED: FENTANYL CITRATE INJ/PF 100 MCG/2 ML AMPUL ONE (10:57)
[2017-04-28] MEDS ORDERED: LIDOCAINE 1% INJ-PF (10 MG/ML) 30 ML SDV ONE (10:57)
[2017-04-28] MEDS ORDERED: MISOPROSTOL 0.2 MG TABLET ONE (10:57)
[2017-04-28] MEDS ORDERED: EPHEDRINE SULFATE INJ 50 MG/1 ML AMPULE ONE (10:57)
[2017-04-28] MEDS ORDERED: FENTANYL/BUPIVACAINE/NS/PF 200 MCG/100 ML RTUINJ EPI ONE (10:58)
[2017-04-28] MEDS ORDERED: PHENYLEPHRINE HCL INJ/PF 10 MG/1 ML SDV ONE (10:58)
[2017-04-28] MEDS ORDERED: BUPIVACAINE HCL 0.25 % INJ/PF (2.5 MG/1 ML) 30 ML VIAL ONE (10:58)
[2017-04-28] MEDS ORDERED: RINGERS SOLUTION,LACTATED 1,000 ML IV PRN (11:40)
[2017-04-28 12:25] LABS: ABSOLUTE EOSINOPHILS # (AUTO) 0.1 10^3/uL (0.0-0.6); ABSOLUTE LYMPHOCYTES (AUTO) 1.5 10^3/uL (0.5-4.7); ABSOLUTE MONOCYTES (AUTO) 0.6 10^3/uL (0.1-1.4); ABSOLUTE NEUT (AUTO) 4.4 10^3/uL (1.7-8.2); BASOPHILS % (AUTO) 0.6 % (0-2); EOSINOPHILS % (AUTO) 1.4 % (0-6); HEMATOCRIT 26.9 % (36.0-47.0); HEMOGLOBIN 8.6 g/dL (12.0-15.5); HGB HCT DIFFERENCE -1.1; LYMPHOCYTES % (AUTO) 22.8 % (13-45); MEAN CORPUSCULAR HEMOGLOBIN 24.8 pg (27.0-33.4); MEAN CORPUSCULAR HGB CONC 31.9 g/dL (32.0-36.0); MEAN CORPUSCULAR VOLUME 78 fl (80-97); MONOCYTES % (AUTO) 9.3 % (3-13); RED BLOOD COUNT 3.46 10^6/uL (3.72-5.28); RED CELL DISTRIBUTION WIDTH 15.7 % (11.5-14.0); SEGMENTED NEUTROPHILS % (AUTO) 65.9 % (42-78); WHITE BLOOD COUNT 6.7 10^3/uL (4.0-10.5)
[2017-04-28] MEDS ORDERED: ACETAMINOPHEN WITH CODEINE #3 TABLET ONE (15:59)
[2017-04-28] MEDS ORDERED: MEASLES,MUMPS&RUBELLA VACC/PF 0.5 ML VIAL SUBCUT PRN (18:23)
[2017-04-28] MEDS ORDERED: DIPH/PERTUSS(ACELL)/TETANUS VAC/PF 0.5 ML SYR (>=10YO) IM PRN (18:23)
[2017-04-28] MEDS ORDERED: BENZOCAINE/MENTHOL AEROSOL SPRAY 56 ML TOP PRN (18:23)
[2017-04-28] MEDS ORDERED: DIBUCAINE 1% OINTMENT 28 GM TP PRN (18:23)
[2017-04-28] MEDS ORDERED: ZOLPIDEM TARTRATE 5 MG TABLET PO PRN (18:23)
[2017-04-28] MEDS ORDERED: ACETAMINOPHEN WITH CODEINE #3 TABLET PO PRN (18:23)
[2017-04-28] MEDS ORDERED: OXYTOCIN/NORMAL SALINE 20 UNIT/1,000 ML RTUINJ IV PRN (18:23)
--- NOTE | 2017-04-28 18:23 | Admission Physical ---
Datetime Report Generated by CPN: 04/28/2017 18:23 CURRENT ADMISSION Hx Assessment: The History has been Reviewed and is Current Hx Assessment: The History has been Reviewed and is Current Chief Complaint: Signs/Symptoms Gestational HTN Chief Complaint: Other Chief Complaint Other: back pain and constipation-noted contractions after being here Indication for Induction: Gestational HTN; Maternal Diabetes Admit Plan: Admit to Unit; Initiate Labor Induction Protocol Admit Plan: Observation/Evaluation ALLERGIES Medication Allergies: Yes Medication Allergies: Milk Containing Products/SV/Sweats, Hives, (04/27/2017); aspirin (04/27/2017); albuterol/SV/Increased HR, i (04/27/2017); pseudoephedrine/SV/SOB, blacks out (04/27/2017); ibuprofen/SV/Swelling (04/27/2017); diphenhydramine/SV/Over sedation (04/27/2017); fexofenadine/SV/SOB, blacks out (04/27/2017) Medication Allergies: Milk Containing Products/SV/Sweats, Hives, (04/13/2017); aspirin (04/25/2017); albuterol/SV/Increased HR, i (04/13/2017); pseudoephedrine/SV/SOB, blacks out (04/13/2017); ibuprofen/SV/Swelling (04/13/2017); diphenhydramine/SV/Over sedation (04/13/2017); fexofenadine/SV/SOB, blacks out (04/13/2017) Medication Allergies: Milk Containing Products/SV/Sweats, Hives, (04/13/2017); albuterol/SV/Increased HR, i (04/13/2017); pseudoephedrine/SV/SOB, blacks out (04/13/2017); ibuprofen/SV/Swelling (04/13/2017); diphenhydramine/SV/Over sedation (04/13/2017); fexofenadine/SV/SOB, blacks out (04/13/2017) Medication Allergies: Milk Containing Products/SV/Sweats, Hives, (03/30/2017); albuterol/SV/Increased HR, i (03/30/2017); pseudoephedrine/SV/SOB, blacks out (03/30/2017); ibuprofen/SV/Swelling (03/30/2017); diphenhydramine/SV/Over sedation (03/30/2017); fexofenadine/SV/SOB, blacks out (03/30/2017) Medication Allergies: Milk Containing Products/SV/Sweats, Hives, (03/16/2017); albuterol/SV/Increased HR, i (03/16/2017); dang D/SV/SOB, blacks out (03/16/2017); ibuprofen/SV/Swelling (03/16/2017); diphenhydramine/SV/Over sedation (03/16/2017); fexofenadine/SV/SOB, blacks out (03/16/2017) Medication Allergies: Milk Containing Products/SV/Sweats, Hives, (02/28/2017); albuterol/SV/Increased HR, i (02/28/2017); pseudoephedrine/SV/SOB, blacks out (02/28/2017); ibuprofen/SV/Swelling (02/28/2017); diphenhydramine/SV/Over sedation (02/28/2017); fexofenadine/SV/SOB, blacks out (02/28/2017) Medication Allergies: Milk Containing Products/SV/Sweats, Hives, (02/25/2017); albuterol/SV/Increased HR, i (02/25/2017); pseudoephedrine/SV/SOB, blacks out (02/25/2017); ibuprofen/SV/Swelling (02/25/2017); diphenhydramine/SV/Over sedation (02/25/2017); fexofenadine/SV/SOB, blacks out (02/25/2017) Medication Allergies: Milk Containing Products/SV/Sweats, Hives, (06/06/2016); albuterol/SV/Increased HR, i (06/06/2016); pseudoephedrine/SV/SOB, blacks out (06/06/2016); ibuprofen/SV/Swelling (06/06/2016); diphenhydramine/SV/Over sedation (06/06/2016); fexofenadine/SV/SOB, blacks out (06/06/2016) Latex: No Latex Allergies Food Allergies: Milk, casen, whey Environmental Allergies: None OBSTETRICAL HISTORY EDC: 05/18/2017 00:00 : 7 Para: 4 Term: 4 : 0 SAB: 2 IAB: 0 Ectopic: 0 Livin Cesareans: 0 VBACs: 0 Multiple Births: 0 Gestational Diabetes: No Rh Sensitization: No Incompetent Cervix: No VISH: No Infertility: Yes ART Treatment: No Uterine Anomaly: No IUGR: No Hx Previous C/S: No Macrosomia: No Hx Loss/Stillborn: No PIH: Yes Hx : No Placenta Previa/Abruption: No Depression/PP Depression: No PTL/PROM: No Post Hemorrhage: No Current Procedures: Ultrasound Obstetrical History Comments: G1 - SAB D_C G2 - 2002 - IOL at 38wks, Fertility treatments, PreE, 8lbs 10oz G3 - 2006 - IOL at 38wks, Fertility treatments, Oligo, 7lbs 8oz G4 - 2012 - at 38wks, PTL at 29wks, hospitalized bed rest, elevated b/p, 8lbs 8oz G5 - 2014 - IOL at 39wks, elevated b/p, 8lbs 12oz G6 - 2016 - SAB, D_C x2 G7 - current - AMA, atypical preeclampsia SEE RECORDS Alcohol: No Marijuana : No Cocaine: No Other Illicit Drugs: No Cigarettes: Never Smoker. 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 Surgery: Yes Heart Disease: No Hosp/Surgery: No Autoimmune Disorder: No Anesthetic Complications: No Kidney Disease: No Abnormal Pap Smear: No Neuro/Epilepsy: No Psychiatric Disorders: No Other Medical Diseases: No Hepatitis/Liver Disease: No Significant Family History: No Varicosities/Phlebitis: No Trauma/Violence : No Thyroid Dysfunction: No Medical History Comments: D_C - 2000, 2015 (x2) (pt states hemmorhage after one of the D_C), PCOS, gDM (diet controlled), pt states "thin blood" and that she bleeds heavily INFECTIOUS HISTORY Gonorrhea: No Genital Herpes: No Chlamydia: No Tuberculosis: No Syphilis: No Hepatitis: No HIV/AIDS Exposure: No Rash or Viral Illness: No HPV: No PHYSICAL EXAM General: Normal General: Normal HEENT: Normal HEENT: Normal Neurologic: Normal Neurologic: Normal Thyroid: Normal Thyroid: Normal Heart: Normal Heart: Normal Lungs: Normal Lungs: Normal Breast: Normal Breast: Normal Back: Normal Back: Normal Abdomen: Normal Abdomen: Normal Genitourinary Exam: Normal Genitourinary Exam: Normal Extremities: Normal Extremities: Normal DTRs: Normal DTRs: Normal Pelvic Type: Adequate Pelvic Type: Adequate Physical Exam Comments: pelvis proven 8 lbs 12oz Physical Exam Comments: bedside sono-transverse back down with head to mat right cervix soft on exam Vital Signs: Reviewed VAGINAL EXAM Dilatation: 0 Contraction Comments: irregular MEMBRANES Membranes: Intact FETUS A EGA: 37.0 EGA: 28.2 Monitoring: External US Monitoring: External US FHR- Baseline: 125 Variability: Moderate 6-25bpm Accelerations: 15X15 Decelerations: None FHR Category: Category I FHR Category: Category I Estimated Weight (gm): 3400 Presentation: Vertex Admit Comment: Admit to L _ D Plan of iol for Gestational hypertension, hx pre-e (refused asa during ) SVE-closed, cervidil montior bp see records for complete hx GDM, on glyburide with polyhydramnios multiple allergies gbs negative Admit Comment: hydrate, pain control. steroids for flm ....discussed magnesium and transfer if painful contractions persist or cerivcal change -wet prep, GC/chlam sent PLANS FOR LABOR AND DELIVERY Labor and Delivery: Plan Pain Management: Natural Feeding Preference: Breast Benefit of Breast Feed Discussed: Yes Circumcision: Yes INFORMED CONSENT Assignment: Ana Luisa Arredondo MD Signature: with User ID: [email or web address] Signature: with User ID: [email or web address] : with User ID: [email or web address] : with User ID: [email or web address]
[2017-04-28] MEDS ORDERED: DOCUSATE SODIUM 100 MG CAPSULE PO ONE (19:00)
[2017-04-28] MEDS ORDERED: FERROUS SULFATE 325 MG TABLET PO ONE (19:00)
[2017-04-28] MEDS: ACETAMINOPHEN WITH CODEINE #3 TABLET PO PRN (20:54)
[2017-04-28] MEDS: ONDANSETRON 4 MG TAB.RAPDIS PO PRN (20:55)
[2017-04-29] MEDS: ACETAMINOPHEN WITH CODEINE #3 TABLET PO PRN ×2 (01:00→05:24)
[2017-04-29] MEDS: ONDANSETRON 4 MG TAB.RAPDIS PO PRN ×5 (01:00→19:47)
[2017-04-29 07:48] LABS: HEMATOCRIT 26.7 % (36.0-47.0); HEMOGLOBIN 8.5 g/dL (12.0-15.5); HGB HCT DIFFERENCE -1.2; MEAN CORPUSCULAR HEMOGLOBIN 24.7 pg (27.0-33.4); MEAN CORPUSCULAR HGB CONC 32.1 g/dL (32.0-36.0); MEAN CORPUSCULAR VOLUME 77 fl (80-97); RED BLOOD COUNT 3.46 10^6/uL (3.72-5.28); RED CELL DISTRIBUTION WIDTH 15.6 % (11.5-14.0); WHITE BLOOD COUNT 8.4 10^3/uL (4.0-10.5)
[2017-04-29] MEDS: SENNOSIDES/DOCUSATE 8.6-50 MG 1 EACH TABLET PO SCH (10:00)
[2017-04-29] MEDS: FERROUS SULFATE 325 MG TABLET PO SCH ×2 (10:01→17:27)
[2017-04-29] MEDS: DOCUSATE SODIUM 100 MG CAPSULE PO SCH ×2 (10:01→17:27)
[2017-04-29] MEDS: PRENATAL VITAMIN W-O CA NO5/FE FUMARATE/FA CAPSULE PO SCH (10:27)
--- NOTE | 2017-04-29 10:34 | PDOC PROGRESS REPORT ---
Subjective-OB Subjective: Post Delivery Day: 1 36 year old. Denies any needs at this time, lochia is stable, pain moderate controlled, allergy to motrin, voiding without difficulty. Physical Exam (OB) Vital Signs: Temp Pulse Resp BP Pulse Ox 98.6 F 80 16 122/78 99 04/29/17 08:04 04/29/17 08:04 04/29/17 08:04 04/29/17 08:04 04/29/17 08:04 Intake & Output 04/28/17 04/29/17 04/30/17 06:59 06:59 06:59 Weight 126.3 kg - PIH/Pre-Eclampsia DTR's: 2 + Clonus: Negative Headache: Absent Epigastric Pain: No Visual Changes: No - Lochia Lochia Amount: Small 10-25 ml Lochia Color: Rubra/Red - Abdomen Description: Soft, Round Hernia Present: No Fundal Description: Firm, Midline Fundal Height: u/u - u/2 Objective-Diagnostic Laboratory: 04/29/17 07:23 04/27/17 17:27 04/28/17 04/29/17 12:02 07:23 WBC 6.7 8.4 RBC 3.46 L 3.46 L Hgb 8.6 L 8.5 L Hct 26.9 L 26.7 L MCV 78 L 77 L MCH 24.8 L 24.7 L MCHC 31.9 L 32.1 RDW 15.7 H 15.6 H Plt Count 186 190 Seg Neutrophils % 65.9 Lymphocytes % 22.8 Monocytes % 9.3 Eosinophils % 1.4 Basophils % 0.6 Absolute Neutrophils 4.4 Absolute Lymphocytes 1.5 Absolute Monocytes 0.6 Absolute Eosinophils 0.1 Absolute Basophils 0.0 Assessment and Plan(PN) - Assessment and Plan (1) Vaginal delivery Is this a current diagnosis for this admission?: Yes Plan: routine pp care (2) Acute blood loss anemia Is this a current diagnosis for this admission?: Yes Plan: ferrous sulfate (3) GDM, class A2 Is this a current diagnosis for this admission?: Yes Plan: yearly f/u (4) Polyhydramnios Qualifiers: Fetus number: single or unspecified fetus Trimester: first trimester Qualified Code(s): O40.1XX0 - Polyhydramnios, first trimester, not applicable or unspecified Is this a current diagnosis for this admission?: Yes (5) Gestational hypertension Qualifiers: Trimester: third trimester Qualified Code(s): O13.3 - Gestational [ -induced] hypertension without significant proteinuria, third trimester Is this a current diagnosis for this admission?: Yes Plan: monitor - Time Spent with Patient Time with patient: Less than 15 minutes Critical Time spent with patient: Less than 15 minutes Medications reviewed and adjusted accordingly: Yes - Disposition Anticipated Discharge: Home Within: within 24 hours
[2017-04-29] MEDS: OXYCODONE-ACETAMINOPHEN 5-325 MG TABLET PO PRN ×3 (10:43→19:47)
[2017-04-29] MEDS ORDERED: FUROSEMIDE 20 MG TABLET PO ONE (18:00)
[2017-04-30] MEDS: OXYCODONE-ACETAMINOPHEN 5-325 MG TABLET PO PRN ×4 (01:26→13:26)
[2017-04-30] MEDS: ONDANSETRON 4 MG TAB.RAPDIS PO PRN ×4 (01:27→13:26)
--- NOTE | 2017-04-30 09:22 | PDOC DISCHARGE SUMMARY ---
Final Diagnosis Discharge Date: 04/30/17 - Final Diagnosis (1) Vaginal delivery Is this a current diagnosis for this admission?: Yes (2) Acute blood loss anemia Is this a current diagnosis for this admission?: Yes (3) GDM, class A2 Is this a current diagnosis for this admission?: Yes (4) Polyhydramnios Is this a current diagnosis for this admission?: Yes (5) Gestational hypertension Is this a current diagnosis for this admission?: Yes Discharge Data - Discharge Medication Home Medications: Ondansetron HCl [Zofran 8 mg Tablet] 1 tab PO ASDIR PRN 04/28/17 Docusate Sodium [Colace 100 mg Capsule] 100 mg PO BID #60 capsule 04/30/17 Ferrous Sulfate [Feosol 325 mg Tablet] 325 mg PO BID #60 tablet 04/30/17 Oxycodone HCl/Acetaminophen [Percocet 5-325 mg Tablet] 2 tab PO Q4HP PRN #30 tablet 04/30/17 Reason(s) for Admission: Induction of Labor, PIH, Gestional Diabetes Procedures: NST Intrapartum Procedure(s): Spontaneous Vaginal Delivery - [place] Data Baby 1 Male at 1 minute: 9 at 5 minutes: 9 Home with Mother: Yes Complications: No - Diagnosis Test Laboratory: Temp Pulse Resp BP Pulse Ox 97.1 F 67 16 128/75 H 99 04/30/17 07:28 04/30/17 07:28 04/30/17 07:28 04/30/17 07:28 04/30/17 07:28 04/27/17 04/27/17 04/28/17 16:52 17:27 12:02 RBC 3.33 L 3.46 L Hgb 8.4 L 8.6 L Hct 25.7 L 26.9 L Urine Opiates Screen NEGATIVE 04/29/17 07:23 RBC 3.46 L Hgb 8.5 L Hct 26.7 L Urine Opiates Screen - Discharge information/Instructions Discharge Activity: Activity As Tolerated, No Lifting Over 10 Pounds, Pelvic Rest, No tub bath Discharge Diet: Regular Disposition: HOME, SELF-CARE Follow up with: [facility] in: 1, Weeks
[2017-04-30] MEDS: FERROUS SULFATE 325 MG TABLET PO SCH (09:44)
[2017-04-30] MEDS: SENNOSIDES/DOCUSATE 8.6-50 MG 1 EACH TABLET PO SCH (09:44)
[2017-04-30] MEDS: DOCUSATE SODIUM 100 MG CAPSULE PO SCH (09:44)
[2017-04-30] MEDS ORDERED: FUROSEMIDE 20 MG TABLET PO SCH (10:00)
[2017-04-30] MEDS: PRENATAL VITAMIN W-O CA NO5/FE FUMARATE/FA CAPSULE PO SCH (11:19)
[2017-04-30 11:27] VITALS: BP 133/79
--- NOTE | 2017-05-03 11:49 | L&D Progress Notes ---
PROGRESS NOTES Datetime Report Generated by CPN: 05/03/2017 11:49 PROGRESS NOTE Impression Other: preeclampsia Plan Other: cont magnesium for full 24 hrs Comment: Pt still with mild headache but no other complaints. Diuresing 450-550 cc/hr. Preeclmpsia labs neg. BPs much improved from clinic yestereday.Will sopt magnesium at 24 hrs then watch on floor tonight to see if bp meds needed. VAGINAL EXAM Dilatation: 0 Contractions: irregular MEMBRANES Membranes: Intact FETUS A Estimated Weight (gm): 3400 Presentation: Vertex SIGNATURE SIGNATURE: [id number];,[id number];,[id number] SIGNATURE: ,[id number];,[id number];14,[id number] SIGNATURE: ,[id number];,[id number] SIGNATURE: ,[id number];14,[id number] SIGNATURE: ,[id number];,[id number] SIGNATURE: ,[id number];14,[id number] SIGNATURE: 14,[id number];10,[id number] Signature: with User ID: [email or web address]
--- NOTE | 2017-05-09 07:23 | Delivery Summary ---
Del Sum A-C Datetime Report Generated by CPN: 05/09/2017 07:23 DELIVERY PERSONNEL DELIVERY PERSONNEL: [id number] Delivery Doctor:: Mehnaz Melissa CNM Nurse Clothing Manager Certified:: Mehnaz Melissa CNM Labor and Delivery Nurse:: Daniel Castle RNshipping receiving clerk Nurse:: Ania Judge RN Checker In/STILL OPERATOR: [facility] Checker In/STILL OPERATOR: Tawnya Flores, PUBLIC HEALTH INFORMATICIAN MATERNAL INFORMATION Delivery Anesthesia: Epidural Medications After Delivery: Pitocin Bolus-Please Comment; Pitocin Drip 20 Units/1000ml NSS Estimated Blood Loss (ml): 200 Maternal Complications: Other Other Maternal Complications: Poly GDM, GHTN, AMA Provider Comments: of viable male infant over intact perineum, head, shoulders and body delivered without difficult, infant with spontaneous cry and respirations to maternal abdomen skin to skin, cord clamped X2, infant cut free, by pts after 2 min delay, spontaneous delivery of placenta via dobson mechanism, appears intact 3 VC, vagina and perineum inspected, no lacerations noted, hemostasis acheived with external fundal massage and iv pitocin, 1000 mcg rectal cytotec given for prophylaxis. Mother and infant in stable condition, routine pp care. LABOR SUMMARY EDC: 05/18/2017 00:00 No. Babies in Womb: 1 Attempted: No Labor Anesthesia: Epidural LABOR INFORMATION Reason for Induction: Gestational Hypertension; Maternal Diabetes; Polyhydramnios Onset of Labor: 04/28/2017 11:00 Complete Dilatation: 04/28/2017 14:36 Cervical Ripening Agents: Cytotec @ [place] 1000 mg - H. Shin CRANE Cervical Ripening Agents: Cervidil (Annotations: 10mg per vagina in posterior fornix) Oxytocin: Induction Group B Beta Strep: 1 NO GROUP B STREPTOCOCCUS RECOVERED Group B Beta Strep: 1 NO GROUP B STREPTOCOCCUS RECOVERED Antibiotics # of Doses: 0 Steroids Given: None Reason Steroids Not Administered: Not Applicable MEMBRANES Membranes Rupture Method: Artificial Rupture of Membranes: 04/28/2017 13:08 Length of Rupture (hr): 1.52 Amniotic Fluid Color: Clear Amniotic Fluid Amount: Large Amniotic Fluid Amount: None Amniotic Fluid Odor: Normal STAGES OF LABOR Stage 1 hr: 3 Stage 1 min: 36 Stage 2 hr: 0 Stage 2 min: 3 Stage 3 hr: 0 Stage 3 min: 4 Total Time in Labor hr: 3 Total Time in Labor min: 43 VAGINAL DELIVERY Episiotomy: None Laceration Extension: N/A Laceration Type: None Laceration Repair: Not Applicable Laceration Repair Note: n/a Sponge Count Correct: N/A Sharps Count Correct: N/A CSECTION DELIVERY Primary Indication: N/A Secondary Indication: N/A CSection Incidence: N/A Labor: N/A Elective: N/A CSection Incision: N/A BABY A INFORMATION Infant Delivery Date/Time: 04/28/2017 14:39 Method of Delivery: Vaginal Born in Route : No : N/A Forceps: N/A Vacuum Extraction: N/A Shoulder Dystocia : No PRESENTATION/POSITION BABY A Presentation: Cephalic Cephalic Presentation: Vertex Vertex Position: OA Breech Presentation: N/A PLACENTA INFORMATION BABY A Placenta Delivery Time : 04/28/2017 14:43 Placenta Method of Delivery: Spontaneous Placenta Status: Delivered SCORES BABY A Heart Rate 1 min: >100 bpm Resp Effort 1 min: Good Cry Reflex Irritability 1 min: Cough or Sneeze or Pulls Away Muscle Tone 1 min: Some Flexion of Extremities Color 1 min: Blue/Pale Resuscitation Effort 1 min: Tactile Stimulation SCORE 1 MIN: 7 Heart Rate 5 min: >100 bpm Resp Effort 5 min: Good Cry Reflex Irritability 5 min: Cough or Sneeze or Pulls Away Muscle Tone 5 min: Active Motion Color 5 min: Body [place], Extremities Blue Resuscitation Effort 5 min: N/A SCORE 5 MIN: 9 INFANT INFORMATION BABY A Gestational Age at Delivery: 37.0 Gestational Status: Early Term- 37- 38.6 Weeks Outcome : Liveborn Infant Condition : Stable Sex: Male IDENTIFICATION BABY A Infant Verification Date/Time: 04/28/2017 15:10 ID Band Number: [id number] Mother's Name Verified: Yes Infant RN Verifying Infant: C. Castle RN Additional Verifying Personnel: V. Monk RN WEIGHT/LENGTH BABY A Birthweight (gm): 3420 Weight (lb): 7 Infant Weight (oz): 9 Infant Length (in): 19.50 Length (cm): 49.53 CORD INFORMATION BABY A No. Cord Vessels: 3 Nuchal Cord : N/A Cord Blood Taken: Yes-For Storage (Mom's Blood type +) Suction: Mouth; Nose ASSESSMENT BABY A Infant Complications: Multiple Late Decels; Multiple Variable Decels; Polyhydramnios Physical Findings at Delivery: Within Normal Limits Infant Respirations: Intercostal Retractions; Nasal Flaring Skin to Skin: Yes Skin to Skin Time (min): 20 Financial Dealers/ALS Called : No Infant Care By: Zuleyma Judge Transferred To: Nursery BABY B INFORMATION : N/A SIGNATURES Assignment: Sixto Egan DO Signature: with User ID: [email or web address] : with User ID: [email or web address]
== END 2017-04-30 14:42 | disposition home or self-care (01) | DRG 775 ==
LOC: LR 16:32 → 2S 04-28 17:45
PROVIDERS: ADMIT Obstetrics & Gynecology; ATTEND Obstetrics & Gynecology
PROC: 10E0XZZ Delivery of Products of Conception, External Approach (ICD-10-PCS; principal; 2017-04-28)
DX: O40.3XX0 Polyhydramnios, third trimester, not applicable or unspecified (principal); Z37.0 Single live birth; O13.3 Gestational [pregnancy-induced] hypertension without significant proteinuria, third trimester; O24.420 Gestational diabetes mellitus in childbirth, diet controlled; Z3A.37 37 weeks gestation of pregnancy; O76 Abnormality in fetal heart rate and rhythm complicating labor and delivery
CPT/HCPCS: 36415; 80053; 80307; 81001; 82570; 82962; 83615; 84156; 84550; 85025; 85027; 86592; 86850; 86900; 86901; 94760; J2370; J2590; J3010; J3490; S0119

== ENCOUNTER 2017-05-02 15:23 | Inpatient (IN) | payer BC, MEDICAID ==
[2017-05-02] MEDS ORDERED: MAGNESIUM SULFATE 4 GM/100 ML RTUPB IV ONE (15:30)
[2017-05-02] MEDS ORDERED: RINGERS SOLUTION,LACTATED 1,000 ML IV PRN (15:36)
[2017-05-02 16:10] LABS: APPEARANCE,URINE CLEAR; BILIRUBIN,URINE NEGATIVE (NEGATIVE); GLUCOSE, URINE NEGATIVE (NEGATIVE); KETONES,URINE NEGATIVE (NEGATIVE); LEUKOCYTE ESTERASE,URINE TRACE (NEGATIVE); NITRITE,URINE NEGATIVE (NEGATIVE); PROTEIN,URINE NEGATIVE (NEGATIVE); URINE SPECIFIC GRAVITY 1.016
[2017-05-02 16:29] LABS: ABSOLUTE BASOPHILS # (AUTO) 0.1 10^3/uL (0.0-0.2); ABSOLUTE EOSINOPHILS # (AUTO) 0.2 10^3/uL (0.0-0.6); ABSOLUTE LYMPHOCYTES (AUTO) 1.6 10^3/uL (0.5-4.7); ABSOLUTE MONOCYTES (AUTO) 0.5 10^3/uL (0.1-1.4); ABSOLUTE NEUT (AUTO) 3.6 10^3/uL (1.7-8.2); BASOPHILS % (AUTO) 0.9 % (0-2); EOSINOPHILS % (AUTO) 3.4 % (0-6); HEMATOCRIT 24.3 % (36.0-47.0); HGB HCT DIFFERENCE -0.6; LYMPHOCYTES % (AUTO) 27.3 % (13-45); MEAN CORPUSCULAR HEMOGLOBIN 25.3 pg (27.0-33.4); MEAN CORPUSCULAR HGB CONC 32.6 g/dL (32.0-36.0); MEAN CORPUSCULAR VOLUME 78 fl (80-97); RED BLOOD COUNT 3.13 10^6/uL (3.72-5.28); RED CELL DISTRIBUTION WIDTH 16.2 % (11.5-14.0); SEGMENTED NEUTROPHILS % (AUTO) 59.4 % (42-78)
[2017-05-02 16:31] LABS: HEMOGLOBIN 7.9 g/dL (12.0-15.5)
[2017-05-02 16:41] LABS: ALANINE AMINOTRANSFERASE 28 U/L (9-52); ALBUMIN 2.8 g/dL (3.5-5.0); ALKALINE PHOSPHATASE 121 U/L (38-126); ANION GAP 8 (5-19); ASPARTATE AMINO TRANSFERASE 30 U/L (14-36); BILIRUBIN,DIRECT 0.3 mg/dL (0.0-0.4); BILIRUBIN,TOTAL 0.3 mg/dL (0.2-1.3); BLOOD UREA NITROGEN 10 mg/dL (7-20); CALCIUM 8.7 mg/dL (8.4-10.2); CARBON DIOXIDE 25 mmol/L (22-30); CHLORIDE 105 mmol/L (98-107); CREATININE RESULT 0.73 mg/dL (0.52-1.25); GLUCOSE 93 mg/dL (75-110); LDH 500 U/L (313-618); POTASSIUM 4.2 mmol/L (3.6-5.0); SODIUM 138.1 mmol/L (137-145); TOTAL PROTEIN 5.4 g/dL (6.3-8.2); URIC ACID 5.9 mg/dL (2.5-7.0)
[2017-05-02] MEDS ORDERED: BUTALB/ACETAMINOPHEN/CAFFEINE 1 TAB EACH ONE ×2 (17:26→17:33)
[2017-05-02] MEDS: BUTALB/ACETAMINOPHEN/CAFFEINE 1 TAB EACH PO PRN (17:32)
[2017-05-02] MEDS ORDERED: BENZOCAINE/MENTHOL AEROSOL SPRAY 56 ML TOP PRN (19:05)
[2017-05-02] MEDS ORDERED: BENZOCAINE/MENTHOL AEROSOL SPRAY 56 ML ONE (19:41)
[2017-05-02] MEDS: GLYCERIN/WITCH HAZEL LEAF 1 EACH MED..PAD TP PRN (19:47)
[2017-05-03] MEDS ORDERED: BUTALB/ACETAMINOPHEN/CAFFEINE 1 TAB EACH ONE ×5 (00:22→20:05)
[2017-05-03] MEDS: BUTALB/ACETAMINOPHEN/CAFFEINE 1 TAB EACH PO PRN ×4 (00:23→20:08)
[2017-05-03] MEDS: MAGNESIUM SULFATE 20 GM/500 ML RTUINJ IV PRN ×2 (04:18→13:38)
[2017-05-03 05:51] LABS: ABSOLUTE EOSINOPHILS # (AUTO) 0.2 10^3/uL (0.0-0.6); ABSOLUTE LYMPHOCYTES (AUTO) 1.5 10^3/uL (0.5-4.7); ABSOLUTE MONOCYTES (AUTO) 0.5 10^3/uL (0.1-1.4); ABSOLUTE NEUT (AUTO) 3.6 10^3/uL (1.7-8.2); BASOPHILS % (AUTO) 0.6 % (0-2); EOSINOPHILS % (AUTO) 3.6 % (0-6); HEMATOCRIT 25.6 % (36.0-47.0); HEMOGLOBIN 8.2 g/dL (12.0-15.5); LYMPHOCYTES % (AUTO) 25.8 % (13-45); MEAN CORPUSCULAR HEMOGLOBIN 25.1 pg (27.0-33.4); MEAN CORPUSCULAR HGB CONC 32.2 g/dL (32.0-36.0); MEAN CORPUSCULAR VOLUME 78 fl (80-97); MONOCYTES % (AUTO) 9.1 % (3-13); RED BLOOD COUNT 3.28 10^6/uL (3.72-5.28); SEGMENTED NEUTROPHILS % (AUTO) 60.9 % (42-78); WHITE BLOOD COUNT 5.9 10^3/uL (4.0-10.5)
[2017-05-03 06:21] LABS: ALANINE AMINOTRANSFERASE 34 U/L (9-52); ALKALINE PHOSPHATASE 127 U/L (38-126); ANION GAP 8 (5-19); ASPARTATE AMINO TRANSFERASE 33 U/L (14-36); BILIRUBIN,DIRECT 0.3 mg/dL (0.0-0.4); BILIRUBIN,TOTAL 0.3 mg/dL (0.2-1.3); BLOOD UREA NITROGEN 8 mg/dL (7-20); CALCIUM 8.1 mg/dL (8.4-10.2); CARBON DIOXIDE 25 mmol/L (22-30); CHLORIDE 105 mmol/L (98-107); GLUCOSE 96 mg/dL (75-110); LDH 564 U/L (313-618); POTASSIUM 4.1 mmol/L (3.6-5.0); SODIUM 138.3 mmol/L (137-145); TOTAL PROTEIN 5.7 g/dL (6.3-8.2); URIC ACID 5.9 mg/dL (2.5-7.0)
[2017-05-03] MEDS: GLYCERIN/WITCH HAZEL LEAF 1 EACH MED..PAD TP PRN (11:19)
[2017-05-03] MEDS ORDERED: GLYCERIN/WITCH HAZEL LEAF 1 EACH MED..PAD TP PRN (11:25)
[2017-05-03] MEDS ORDERED: BENZOCAINE/MENTHOL AEROSOL SPRAY 56 ML TOP PRN (11:26)
[2017-05-03] MEDS ORDERED: NIFEDIPINE 30 MG TAB.ER.24 PO ONE ×2 (17:32→21:00)
--- NOTE | 2017-05-03 20:56 | Admission Physical ---
Datetime Report Generated by CPN: 05/03/2017 20:55 CURRENT ADMISSION Hx Assessment: The History has been Reviewed and is Current Hx Assessment: The History has been Reviewed and is Current Chief Complaint: Sent from OB Office for Evaluation and Treatment - Please Specify Chief Complaint: Signs/Symptoms Gestational HTN Chief Complaint: Other Chief Complaint Other: 36yo 5d pp who presented to clinic this afternoon for pain due to hemorrhoid and was found to have high blood pressure (163/98). Pt. also reported KITCHEN, RUQ pain and visual changes. Pt. was induced due to gestational hypertension and discharged on 04/01. Orders and report received from Dr. Hartmann. Chief Complaint Other: back pain and constipation-noted contractions after being here Indication for Induction: Not Applicable Indication for Induction: Gestational HTN; Maternal Diabetes Admit Impression- Other: pre-eclampsia Admit Plan: Admit to Unit Admit Plan: Admit to Unit; Initiate Labor Induction Protocol Admit Plan: Observation/Evaluation Admit Plan- Other: PIH labs, mag per protocol (see orders), seizure precautions. ALLERGIES Medication Allergies: Yes Medication Allergies: Milk Containing Products/SV/Sweats, Hives, (04/27/2017); aspirin (04/27/2017); albuterol/SV/Increased HR, i (04/27/2017); pseudoephedrine/SV/SOB, blacks out (04/27/2017); ibuprofen/SV/Swelling (04/27/2017); diphenhydramine/SV/Over sedation (04/27/2017); fexofenadine/SV/SOB, blacks out (04/27/2017) Medication Allergies: Milk Containing Products/SV/Sweats, Hives, (04/13/2017); aspirin (04/25/2017); albuterol/SV/Increased HR, i (04/13/2017); pseudoephedrine/SV/SOB, blacks out (04/13/2017); ibuprofen/SV/Swelling (04/13/2017); diphenhydramine/SV/Over sedation (04/13/2017); fexofenadine/SV/SOB, blacks out (04/13/2017) Medication Allergies: Milk Containing Products/SV/Sweats, Hives, (04/13/2017); albuterol/SV/Increased HR, i (04/13/2017); pseudoephedrine/SV/SOB, blacks out (04/13/2017); ibuprofen/SV/Swelling (04/13/2017); diphenhydramine/SV/Over sedation (04/13/2017); fexofenadine/SV/SOB, blacks out (04/13/2017) Medication Allergies: Milk Containing Products/SV/Sweats, Hives, (03/30/2017); albuterol/SV/Increased HR, i (03/30/2017); pseudoephedrine/SV/SOB, blacks out (03/30/2017); ibuprofen/SV/Swelling (03/30/2017); diphenhydramine/SV/Over sedation (03/30/2017); fexofenadine/SV/SOB, blacks out (03/30/2017) Medication Allergies: Milk Containing Products/SV/Sweats, Hives, (03/16/2017); albuterol/SV/Increased HR, i (03/16/2017); dang D/SV/SOB, blacks out (03/16/2017); ibuprofen/SV/Swelling (03/16/2017); diphenhydramine/SV/Over sedation (03/16/2017); fexofenadine/SV/SOB, blacks out (03/16/2017) Medication Allergies: Milk Containing Products/SV/Sweats, Hives, (02/28/2017); albuterol/SV/Increased HR, i (02/28/2017); pseudoephedrine/SV/SOB, blacks out (02/28/2017); ibuprofen/SV/Swelling (02/28/2017); diphenhydramine/SV/Over sedation (02/28/2017); fexofenadine/SV/SOB, blacks out (02/28/2017) Medication Allergies: Milk Containing Products/SV/Sweats, Hives, (02/25/2017); albuterol/SV/Increased HR, i (02/25/2017); pseudoephedrine/SV/SOB, blacks out (02/25/2017); ibuprofen/SV/Swelling (02/25/2017); diphenhydramine/SV/Over sedation (02/25/2017); fexofenadine/SV/SOB, blacks out (02/25/2017) Medication Allergies: Milk Containing Products/SV/Sweats, Hives, (06/06/2016); albuterol/SV/Increased HR, i (06/06/2016); pseudoephedrine/SV/SOB, blacks out (06/06/2016); ibuprofen/SV/Swelling (06/06/2016); diphenhydramine/SV/Over sedation (06/06/2016); fexofenadine/SV/SOB, blacks out (06/06/2016) Latex: No Latex Allergies Food Allergies: Milk, casen, whey Environmental Allergies: None OBSTETRICAL HISTORY EDC: 05/18/2017 00:00 : 7 Para: 4 Term: 4 : 0 SAB: 2 IAB: 0 Ectopic: 0 Livin Cesareans: 0 VBACs: 0 Multiple Births: 0 Gestational Diabetes: No Rh Sensitization: No Incompetent Cervix: No VISH: No Infertility: Yes ART Treatment: No Uterine Anomaly: No IUGR: No Hx Previous C/S: No Macrosomia: No Hx Loss/Stillborn: No PIH: Yes Hx : No Placenta Previa/Abruption: No Depression/PP Depression: No PTL/PROM: No Post Hemorrhage: No Current Procedures: Ultrasound Obstetrical History Comments: G1 - SAB D_C G2 - 2002 - IOL at 38wks, Fertility treatments, PreE, 8lbs 10oz G3 - 2006 - IOL at 38wks, Fertility treatments, Oligo, 7lbs 8oz G4 - 2012 - at 38wks, PTL at 29wks, hospitalized bed rest, elevated b/p, 8lbs 8oz G5 - 2014 - IOL at 39wks, elevated b/p, 8lbs 12oz G6 - 2016 - SAB, D_C x2 G7 - current - AMA, atypical preeclampsia SEE RECORDS Alcohol: No Marijuana : No Cocaine: No Other Illicit Drugs: No Cigarettes: Never Smoker. 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: Yes Heart Disease: No Hosp/Surgery: No Autoimmune Disorder: No Anesthetic Complications: No Kidney Disease: No Abnormal Pap Smear: No Neuro/Epilepsy: No Psychiatric Disorders: No Other Medical Diseases: No Hepatitis/Liver Disease: No Significant Family History: No Varicosities/Phlebitis: No Trauma/Violence : No Thyroid Dysfunction: No Medical History Comments: D_C - 2000, 2015 (x2) (pt states hemmorhage after one of the D_C), PCOS, gDM (diet controlled), pt states "thin blood" and that she bleeds heavily INFECTIOUS HISTORY Gonorrhea: No Genital Herpes: No Chlamydia: No Tuberculosis: No Syphilis: No Hepatitis: No HIV/AIDS Exposure: No Rash or Viral Illness: No HPV: No PHYSICAL EXAM General: Normal General: Normal General: Normal HEENT: Normal HEENT: Normal HEENT: Normal Neurologic: Normal Neurologic: Normal Neurologic: Normal Thyroid: Deferred Thyroid: Normal Thyroid: Normal Heart: Normal Heart: Normal Heart: Normal Lungs: Normal Lungs: Normal Lungs: Normal Breast: Deferred Breast: Normal Breast: Normal Back: Deferred Back: Normal Back: Normal Abdomen: Normal Abdomen: Normal Abdomen: Normal Genitourinary Exam: Normal Genitourinary Exam: Normal Genitourinary Exam: Normal Extremities: Normal Extremities: Normal Extremities: Normal DTRs: Normal DTRs: Normal DTRs: Normal Pelvic Type: Not Done Pelvic Type: Adequate Pelvic Type: Adequate Physical Exam Comments: Bilateral lower extremity edema -pitting 3+ (exam by Dr. Hartmann and Dr. Arredondo Physical Exam Comments: pelvis proven 8 lbs 12oz Physical Exam Comments: bedside sono-transverse back down with head to mat right cervix soft on exam Vital Signs: Reviewed Vital Signs: Reviewed Details Vital Signs: mild range VAGINAL EXAM Dilatation: 0 Contraction Comments: irregular MEMBRANES Membranes: Intact FETUS A EGA: 37.5 EGA: 37.0 EGA: 28.2 Monitoring: External US Monitoring: External US FHR- Baseline: 125 Variability: Moderate 6-25bpm Accelerations: 15X15 Decelerations: None FHR Category: Category I FHR Category: Category I Estimated Weight (gm): 3400 Presentation: Vertex Admit Comment: Admit to L _ D Plan of iol for Gestational hypertension, hx pre-e (refused asa during ) SVE-closed, cervidil montior bp see records for complete hx GDM, on glyburide with polyhydramnios multiple allergies gbs negative Admit Comment: hydrate, pain control. steroids for flm ....discussed magnesium and transfer if painful contractions persist or cerivcal change -wet prep, GC/chlam sent PLANS FOR LABOR AND DELIVERY Labor and Delivery: Plan Pain Management: Natural Feeding Preference: Breast Benefit of Breast Feed Discussed: Yes Circumcision: Yes INFORMED CONSENT Assignment: Ana Luisa Arredondo MD Assignment: Ana Luisa Arredondo MD : Ana Luisa Arredondo MD Signature: with User ID: [email or web address] Signature: with User ID: [email or web address] Signature: with User ID: [email or web address] : with User ID: [email or web address] : with User ID: [email or web address] : with User ID: [email or web address]
[2017-05-04] MEDS: BUTALB/ACETAMINOPHEN/CAFFEINE 1 TAB EACH PO PRN ×2 (02:37→08:39)
[2017-05-04 07:57] VITALS: BP 137/81
--- NOTE | 2017-05-04 09:31 | PDOC DISCHARGE SUMMARY ---
Final Diagnosis Discharge Date: 05/04/17 - Final Diagnosis (1) Gestational hypertension Is this a current diagnosis for this admission?: Yes (2) Vaginal delivery Is this a current diagnosis for this admission?: Yes Discharge Data - Discharge Medication Home Medications: Ondansetron HCl [Zofran 8 mg Tablet] 1 tab PO ASDIR PRN 04/28/17 Docusate Sodium [Colace 100 mg Capsule] 100 mg PO BID #60 capsule 04/30/17 Ferrous Sulfate [Feosol 325 mg Tablet] 325 mg PO BID #60 tablet 04/30/17 Oxycodone HCl/Acetaminophen [Percocet 5-325 mg Tablet] 2 tab PO Q4HP PRN #30 tablet 04/30/17 Nifedipine [Procardia XL 30 mg Tablet] 30 mg PO QPM #60 tab.er.24 05/04/17 Admission Note: readmit for pre-e and mag. Procedures: NST Intrapartum Procedure(s): Spontaneous Vaginal Delivery - Diagnosis Test Laboratory: Temp Pulse Resp BP Pulse Ox 97.9 F 62 18 137/81 H 99 05/04/17 07:38 05/04/17 07:38 05/04/17 07:38 05/04/17 07:38 05/04/17 07:38 05/02/17 05/03/17 16:15 05:44 RBC 3.13 L 3.28 L Hgb 7.9 L 8.2 L Hct 24.3 L 25.6 L - Discharge information/Instructions Discharge Activity: No Driving, No Lifting Over 10 Pounds, No tub bath Discharge Diet: Regular Disposition: HOME, SELF-CARE Follow up with: [facility] in: 1, Weeks
[2017-05-04] MEDS ORDERED: NIFEDIPINE 30 MG TAB.ER.24 PO SCH (18:00)
--- NOTE | 2017-05-09 07:28 | Delivery Summary ---
Del Sum A-C Datetime Report Generated by CPN: 05/09/2017 07:28 DELIVERY PERSONNEL DELIVERY PERSONNEL: [id number] Delivery Doctor:: Mehnaz Melissa CNM Nurse Chief Sustainability Officer Certified:: Mehnaz Melissa CNM Labor and Delivery Nurse:: Daniel Castle RNlayout worker Nurse:: Ania Judge RN Bead Preparer/DEVIL DOG: [facility] Bead Preparer/DEVIL DOG: Tawnya Flores, SYSTEMS INTEGRATION MANAGER MATERNAL INFORMATION Delivery Anesthesia: Epidural Medications After Delivery: Pitocin Bolus-Please Comment; Pitocin Drip 20 Units/1000ml NSS Estimated Blood Loss (ml): 200 Maternal Complications: Other Other Maternal Complications: Poly GDM, GHTN, AMA Provider Comments: of viable male infant over intact perineum, head, shoulders and body delivered without difficult, infant with spontaneous cry and respirations to maternal abdomen skin to skin, cord clamped X2, infant cut free, by pts after 2 min delay, spontaneous delivery of placenta via dobson mechanism, appears intact 3 VC, vagina and perineum inspected, no lacerations noted, hemostasis acheived with external fundal massage and iv pitocin, 1000 mcg rectal cytotec given for prophylaxis. Mother and infant in stable condition, routine pp care. LABOR SUMMARY EDC: 05/18/2017 00:00 No. Babies in Womb: 1 Attempted: No Labor Anesthesia: Epidural LABOR INFORMATION Reason for Induction: Gestational Hypertension; Maternal Diabetes; Polyhydramnios Onset of Labor: 04/28/2017 11:00 Complete Dilatation: 04/28/2017 14:36 Cervical Ripening Agents: Cytotec @ [place] 1000 mg - H. Shin CRANE Cervical Ripening Agents: Cervidil (Annotations: 10mg per vagina in posterior fornix) Oxytocin: Induction Group B Beta Strep: 1 NO GROUP B STREPTOCOCCUS RECOVERED Group B Beta Strep: 1 NO GROUP B STREPTOCOCCUS RECOVERED Antibiotics # of Doses: 0 Steroids Given: None Reason Steroids Not Administered: Not Applicable MEMBRANES Membranes Rupture Method: Artificial Rupture of Membranes: 04/28/2017 13:08 Length of Rupture (hr): 1.52 Amniotic Fluid Color: Clear Amniotic Fluid Amount: Large Amniotic Fluid Amount: None Amniotic Fluid Odor: Normal STAGES OF LABOR Stage 1 hr: 3 Stage 1 min: 36 Stage 2 hr: 0 Stage 2 min: 3 Stage 3 hr: 0 Stage 3 min: 4 Total Time in Labor hr: 3 Total Time in Labor min: 43 VAGINAL DELIVERY Episiotomy: None Laceration Extension: N/A Laceration Type: None Laceration Repair: Not Applicable Laceration Repair Note: n/a Sponge Count Correct: N/A Sharps Count Correct: N/A CSECTION DELIVERY Primary Indication: N/A Secondary Indication: N/A CSection Incidence: N/A Labor: N/A Elective: N/A CSection Incision: N/A BABY A INFORMATION Infant Delivery Date/Time: 04/28/2017 14:39 Method of Delivery: Vaginal Born in Route : No : N/A Forceps: N/A Vacuum Extraction: N/A Shoulder Dystocia : No PRESENTATION/POSITION BABY A Presentation: Cephalic Cephalic Presentation: Vertex Vertex Position: OA Breech Presentation: N/A PLACENTA INFORMATION BABY A Placenta Delivery Time : 04/28/2017 14:43 Placenta Method of Delivery: Spontaneous Placenta Status: Delivered SCORES BABY A Heart Rate 1 min: >100 bpm Resp Effort 1 min: Good Cry Reflex Irritability 1 min: Cough or Sneeze or Pulls Away Muscle Tone 1 min: Some Flexion of Extremities Color 1 min: Blue/Pale Resuscitation Effort 1 min: Tactile Stimulation SCORE 1 MIN: 7 Heart Rate 5 min: >100 bpm Resp Effort 5 min: Good Cry Reflex Irritability 5 min: Cough or Sneeze or Pulls Away Muscle Tone 5 min: Active Motion Color 5 min: Body [place], Extremities Blue Resuscitation Effort 5 min: N/A SCORE 5 MIN: 9 INFANT INFORMATION BABY A Gestational Age at Delivery: 37.0 Gestational Status: Early Term- 37- 38.6 Weeks Outcome : Liveborn Infant Condition : Stable Sex: Male IDENTIFICATION BABY A Infant Verification Date/Time: 04/28/2017 15:10 ID Band Number: [id number] Mother's Name Verified: Yes Infant RN Verifying Infant: C. Castle RN Additional Verifying Personnel: V. Monk RN WEIGHT/LENGTH BABY A Birthweight (gm): 3420 Weight (lb): 7 Infant Weight (oz): 9 Infant Length (in): 19.50 Length (cm): 49.53 CORD INFORMATION BABY A No. Cord Vessels: 3 Nuchal Cord : N/A Cord Blood Taken: Yes-For Storage (Mom's Blood type +) Suction: Mouth; Nose ASSESSMENT BABY A Infant Complications: Multiple Late Decels; Multiple Variable Decels; Polyhydramnios Physical Findings at Delivery: Within Normal Limits Infant Respirations: Intercostal Retractions; Nasal Flaring Skin to Skin: Yes Skin to Skin Time (min): 20 Building Code Administrator/ALS Called : No Infant Care By: Zuleyma Judge Transferred To: Nursery BABY B INFORMATION : N/A SIGNATURES Assignment: Sixto Egan DO Signature: with User ID: [email or web address] : with User ID: [email or web address]
== END 2017-05-04 10:54 | disposition home or self-care (01) | DRG 776 ==
LOC: LR 15:23 → 2S 05-03 20:30
PROVIDERS: ADMIT Obstetrics & Gynecology; ATTEND Obstetrics & Gynecology
DX: O14.95 Unspecified pre-eclampsia, complicating the puerperium (principal); Z88.6 Allergy status to analgesic agent
CPT/HCPCS: 36415; 80053; 81001; 83615; 84550; 85025; 86850; 86900; 86901; 94760; J3475; J3490

== ENCOUNTER 2018-02-27 16:27 | Inpatient (IN) | payer BC, MEDICAID ==
[2018-02-27] MEDS ORDERED: METOCLOPRAMIDE HCL INJ/PF 10 MG/2 ML SDV IV ONE (18:58)
[2018-02-27] MEDS ORDERED: NORMAL SALINE 1000 ML 1,000 ML IV ONE ×2 (18:58→22:58)
--- NOTE | 2018-02-27 19:00 | ER Document Report ---
ED General - General Chief Complaint: Abdominal Pain Stated Complaint: ABDOMINAL PAIN Time Seen by Provider: 02/27/18 18:37 Notes: Patient is a 37-year-old female without chronic medical problems who presents with 2 days of progressively worsening generalized abdominal pain most focal to the right lower quadrant. The patient describes this as a severe, throbbing, aching pain that is constant. Worsened by movement or touching the area. Nothing improves the pain. She denies any history of similar symptoms in the past. She was seen by her primary care doctor today and referred to the emergency department due to concern of possible acute appendicitis. She denies any fever at home but states that she has felt hot and cold as well as had generalized malaise. She has had nausea but no vomiting. She has had normal bowel movements. No dysuria, vaginal bleeding or vaginal discharge. TRAVEL OUTSIDE OF THE [place] IN LAST 30 DAYS: No - Related Data Allergies/Adverse Reactions: albuterol Allergy (Severe, Verified 02/27/18 17:49) Increased HR, increases Asthma symptoms fexofenadine [From Latrice-D] Allergy (Severe, Verified 02/27/18 17:49) SOB, blacks out ibuprofen [From Motrin] Allergy (Severe, Verified 02/27/18 17:49) Swelling Milk Containing Products Allergy (Severe, Verified 02/27/18 17:49) Sweats, Hives, Diarrhea, N&V pseudoephedrine [From Latrice-D] Allergy (Severe, Verified 02/27/18 17:49) SOB, blacks out diphenhydramine [From Benadryl] Adverse Reaction (Severe, Verified 02/27/18 17: 49) Over sedation aspirin Adverse Reaction (Verified 02/27/18 17:49) Past Medical History - General Information source: Patient - Social History Smoking Status: Never Smoker Chew tobacco use (# tins/day): No Frequency of alcohol use: None Drug Abuse: None Lives with: Spouse/Significant other Family History: Reviewed & Not Pertinent Patient has suicidal ideation: No Patient has homicidal ideation: No - Past Medical History Cardiac Medical History: Reports: Hx Hypertension - with Denies: Hx Coronary Artery Disease, Hx Heart Attack Pulmonary Medical History: Reports: Hx Asthma, Hx Pneumonia - 2009 Denies: Hx Bronchitis, Hx COPD Neurological Medical History: Denies: Hx Cerebrovascular Accident, Hx Seizures Renal/ Medical History: Reports: Hx Ovarian Cysts - PCOS. Denies: Hx Peritoneal Dialysis Musculoskeltal Medical History: Denies Hx Arthritis Past Surgical History: Reports: Hx Gynecologic Surgery - EMERGENCY D/C FOR MISCARRIAGE - Immunizations Hx Diphtheria, Pertussis, Tetanus Vaccination: Yes - 2013 Review of Systems - Review of Systems Notes: Constitutional: Negative for fever. HENT: Negative for sore throat. Eyes: Negative for visual changes. Cardiovascular: Negative for chest pain. Respiratory: Negative for shortness of breath. Gastrointestinal: Positive for abdominal pain and nausea Genitourinary: Negative for dysuria. Musculoskeletal: Negative for back pain. Skin: Negative for rash. Neurological: Negative for headaches, weakness or numbness. 10 point ROS negative except as marked above and in HPI. Physical Exam - Vital signs Vitals: Temp Pulse Resp BP Pulse Ox 99.2 F 57 L 16 120/67 97 02/27/18 16:42 02/27/18 16:42 02/27/18 16:42 02/27/18 16:42 02/27/18 16:42 Interpretation: Bradycardic Notes: PHYSICAL EXAMINATION: GENERAL: Appears uncomfortable but in no acute distress HEAD: Atraumatic, normocephalic. EYES: Pupils equal round and reactive to light, extraocular movements intact, sclera anicteric, conjunctiva are normal. ENT: nares patent, oropharynx clear without exudates. Moderately dry mucous membranes. NECK: Normal range of motion, supple without lymphadenopathy LUNGS: Breath sounds clear to auscultation bilaterally and equal. No wheezes rales or rhonchi. HEART: Regular rate and rhythm without murmurs ABDOMEN: Soft, diffuse tenderness most focal to the right lower quadrant, rebound tenderness present in the right lower quadrant., normoactive bowel sounds. No guarding, no rebound. No masses appreciated. EXTREMITIES: Normal range of motion, no pitting or edema. No cyanosis. NEUROLOGICAL: No focal neurological deficits. Moves all extremities spontaneously and on command. PSYCH: Normal mood, normal affect. SKIN: Warm, Dry, normal turgor, no rashes or lesions noted. Course - Re-evaluation Re-evalutation: 02/27/18 18:59 Patient presents with a concerning abdominal exam with diffuse abdominal tenderness most localized to the right lower quadrant with associated rebound but no rigidity. High level of concern for a possible acute appendicitis versus an appendicitis with associated rupture. The patient is extremely nauseated, appears to be in severe pain. Will provide IV morphine, metoclopramide, proceed with labs and CT of the abdomen and pelvis to further assess. Patient and her at the bedside are agreeable to this approach. 02/27/18 22:59 Findings are consistent with acute appendicitis on CT scan. IV Zosyn has been initiated. I have paged Dr. Bruner and I am awaiting a call back 02/27/18 23:[address] Bruner who will see and admit the patient. - Vital Signs Vital signs: Temp Pulse Resp BP Pulse Ox 97.5 F 51 L 16 104/62 100 02/28/18 02:41 02/28/18 02:41 02/28/18 02:41 02/28/18 02:41 02/28/18 02:41 - Laboratory Result Diagrams: 02/27/18 17:46 02/27/18 17:46 Laboratory results interpreted by me: 02/27/18 19:10 Urine Ketones TRACE H Urine Urobilinogen 2.0 H - Diagnostic Test Radiology reviewed: Reports reviewed Discharge - Discharge Clinical Impression: Acute appendicitis Qualifiers: Acute appendicitis type: with localized peritonitis Qualified Code(s): K35.3 - Acute appendicitis with localized peritonitis Condition: Fair Disposition: ADMITTED OBSERVATION Admitting Provider: Surgicalist Unit Admitted: Surgical Floor
[2018-02-27 19:03] LABS: ABSOLUTE EOSINOPHILS # (AUTO) 0.2 10^3/uL (0.0-0.6); ABSOLUTE LYMPHOCYTES (AUTO) 2.8 10^3/uL (0.5-4.7); ABSOLUTE MONOCYTES (AUTO) 0.5 10^3/uL (0.1-1.4); ABSOLUTE NEUT (AUTO) 2.8 10^3/uL (1.7-8.2); BASOPHILS % (AUTO) 0.7 % (0-2); EOSINOPHILS % (AUTO) 2.9 % (0-6); HEMATOCRIT 39.8 % (36.0-47.0); HEMOGLOBIN 13.5 g/dL (12.0-15.5); LYMPHOCYTES % (AUTO) 44.1 % (13-45); MEAN CORPUSCULAR HEMOGLOBIN 31.4 pg (27.0-33.4); MEAN CORPUSCULAR VOLUME 92 fl (80-97); MONOCYTES % (AUTO) 7.3 % (3-13); PLATELET COUNT 200 10^3/uL (150-450); RED BLOOD COUNT 4.31 10^6/uL (3.72-5.28); RED CELL DISTRIBUTION WIDTH 13.9 % (11.5-14.0); TOTAL CELLS COUNTED % (AUTO) 100 %; WHITE BLOOD COUNT 6.2 10^3/uL (4.0-10.5)
[2018-02-27 19:09] LABS: ALANINE AMINOTRANSFERASE 29 U/L (9-52); ALBUMIN 4.6 g/dL (3.5-5.0); ALKALINE PHOSPHATASE 105 U/L (38-126); ANION GAP 13 (5-19); ASPARTATE AMINO TRANSFERASE 23 U/L (14-36); BILIRUBIN,DIRECT 0.3 mg/dL (0.0-0.4); BILIRUBIN,TOTAL 0.4 mg/dL (0.2-1.3); BLOOD UREA NITROGEN 11 mg/dL (7-20); CALCIUM 9.6 mg/dL (8.4-10.2); CARBON DIOXIDE 28 mmol/L (22-30); CHLORIDE 102 mmol/L (98-107); GLUCOSE 84 mg/dL (75-110); LIPASE 72.3 U/L (23-300); TOTAL PROTEIN 7.5 g/dL (6.3-8.2)
[2018-02-27] MEDS: MORPHINE SULFATE 10 MG/ML INJ IV PRN ×2 (19:14→23:40)
[2018-02-27 19:26] LABS: APPEARANCE,URINE SLIGHTLY-CLOUDY; BILIRUBIN,URINE NEGATIVE (NEGATIVE); COLOR,URINE AMBER; GLUCOSE, URINE NEGATIVE (NEGATIVE); KETONES,URINE TRACE mg/dL (NEGATIVE); LEUKOCYTE ESTERASE,URINE NEGATIVE (NEGATIVE); NITRITE,URINE NEGATIVE (NEGATIVE); PROTEIN,URINE NEGATIVE (NEGATIVE)
--- NOTE | 2018-02-27 22:50 | RADIOLOGY REPORT (SQ) ---
EXAM DESCRIPTION: CT ABDOMEN PELVIS WITH IV CONTRAST COMPLETED DATE/TME: 02/27/2018 18:58 CLINICAL HISTORY: 37 years Female, rlq ab pain, eval appy Comparison: None. Technique: IV contrast. Coronal and sagittal reformat. This exam was performed according to our departmental dose-optimization program, which includes automated exposure control, adjustment of the mA and/or kV according to patient size and/or use of iterative reconstruction technique.[facility]: Dose Right [facility]: CareDose [facility]: Dose Right [facility]: Teradose 4D [facility]: LEID Products LIMITATIONS: None Findings: Acute appendicitis includes an inflamed appendix measuring 1.2 cm in diameter, mural thickening of 0.4 cm, mild periappendiceal fat inflammation, mild mesenteric lymphadenopathy of the right lower abdominal quadrant, no significant free fluid. Cholelithiasis. No ascites. Inferior thorax, liver, gallbladder, pancreas, spleen, adrenals, renal system, gastrointestinal tract, pelvic organs, lymphatics, vasculature, and musculoskeleton appear otherwise unremarkable. IMPRESSION: 1. Acute appendicitis. 2. Cholelithiasis.
[2018-02-27] MEDS ORDERED: PIPERACILLIN/TAZOBACTAM 3.375 GM VIAL IV ONE (22:58)
[2018-02-27] MEDS ORDERED: MIDAZOLAM 2 MG/2 ML INJ ONE (23:25)
[2018-02-27] MEDS ORDERED: FENTANYL CITRATE INJ/PF 100 MCG/2 ML AMPUL ONE (23:25)
[2018-02-27] MEDS ORDERED: HYDROMORPHONE HCL INJ/PF 2 MG/ML AMPULE ONE (23:26)
[2018-02-27] MEDS ORDERED: ACETAMINOPHEN 1,000 MG/100 ML RTUPB IV ONE (23:26)
[2018-02-27] MEDS ORDERED: PROPOFOL INJ 200 MG/20 ML VIAL IV ONE (23:26)
--- NOTE | 2018-02-27 23:37 | PDOC H&P ---
History of Present Illness Admission Date/PCP: 02/27/18 23:14 LIZZ DEMPSEY MD Patient complains of: right side abdominal pain History of Present Illness: LOIS LYNNE is a 37 year old female health with a 1 day hx of right side abdominal pain, nausea. A CT scan of the A/P has been done and it reveals and acute non-perforated appendicitis. Past Medical History Cardiac Medical History: Reports: Hypertension - with Denies: Coronary Artery Disease, Myocardial Infarction Pulmonary Medical History: Reports: Asthma, Pneumonia - 2010 Denies: Bronchitis, Chronic Obstructive Pulmonary Disease (COPD) Neurological Medical History: Denies: Seizures Musculoskeltal Medical History: Denies: Arthritis Hematology: Reports: Anemia - with pregnancies Social History Smoking Status: Unknown if Ever Smoked Family History Family History: Reviewed & Not Pertinent Parental Family History Reviewed: No Children Family History Reviewed: No Sibling(s) Family History Reviewed.: No Medication/Allergy Home Medications: Ondansetron HCl [Zofran 8 mg Tablet] 1 tab PO ASDIR PRN 04/28/17 Docusate Sodium [Colace 100 mg Capsule] 100 mg PO BID #60 capsule 04/30/17 Ferrous Sulfate [Feosol 325 mg Tablet] 325 mg PO BID #60 tablet 04/30/17 Oxycodone HCl/Acetaminophen [Percocet 5-325 mg Tablet] 2 tab PO Q4HP PRN #30 tablet 04/30/17 Nifedipine [Procardia XL 30 mg Tablet] 30 mg PO QPM #60 tab.er.24 05/04/17 Allergies/Adverse Reactions: albuterol Allergy (Severe, Verified 02/27/18 17:49) Increased HR, increases Asthma symptoms fexofenadine [From Latrice-D] Allergy (Severe, Verified 02/27/18 17:49) SOB, blacks out ibuprofen [From Motrin] Allergy (Severe, Verified 02/27/18 17:49) Swelling Milk Containing Products Allergy (Severe, Verified 02/27/18 17:49) Sweats, Hives, Diarrhea, N&V pseudoephedrine [From Latrice-D] Allergy (Severe, Verified 02/27/18 17:49) SOB, blacks out diphenhydramine [From Benadryl] Adverse Reaction (Severe, Verified 02/27/18 17: 49) Over sedation aspirin Adverse Reaction (Verified 02/27/18 17:49) Physical Exam Vital Signs: Temp Pulse Resp BP Pulse Ox 98.8 F 89 18 110/80 98 02/27/18 21:40 02/27/18 21:40 02/27/18 21:40 02/27/18 21:40 02/27/18 21:01 General appearance: PRESENT: mild distress Eye exam: PRESENT: EOMI Mouth exam: PRESENT: dry mucosa, neck supple Respiratory exam: PRESENT: clear to auscultation claude Cardiovascular exam: PRESENT: RRR GI/Abdominal exam: PRESENT: soft, tenderness - right lower and lateral quadrants Extremities exam: PRESENT: full ROM Musculoskeletal exam: PRESENT: full ROM Skin exam: PRESENT: warm Results Impressions: Abdomen/Pelvis CT 02/27/18 18:58 IMPRESSION: 1. Acute appendicitis. 2. Cholelithiasis. Assessment & Plan - Diagnosis (1) Acute appendicitis Qualifiers: Acute appendicitis type: with localized peritonitis Qualified Code(s): K35.3 - Acute appendicitis with localized peritonitis Is this a current diagnosis for this admission?: Yes - Plan Summary Plan Summary: A/ right side abdominal pain CT scan of the A/P reveals and acute non-perforated appendicitis blood work WNL P/ NPO IV hydration IV Zosyn Laparoscopic appendectomy possible open. Procedure, risks, benefits. complications have been discussed with the patient, she understands all of those, her questions were answered, and she decides to prooceed
[2018-02-28] MEDS ORDERED: BUPIVACAINE HCL 0.5%-EPI 1:200000 INJ/PF 30 ML VIAL ONE (00:47)
[2018-02-28] MEDS ORDERED: ONDANSETRON HCL INJ/PF 4 MG/2 ML SDV IV PRN (01:10)
[2018-02-28] MEDS ORDERED: FENTANYL CITRATE INJ/PF 100 MCG/2 ML AMPUL IV PRN ×3 (01:10)
[2018-02-28] MEDS ORDERED: MEPERIDINE HCL/PF INJ 25 MG/1 ML DISP.SYRIN IV PRN (01:10)
[2018-02-28] MEDS ORDERED: PROMETHAZINE HCL INJ 25 MG/1 ML VIAL IV PRN (01:10)
[2018-02-28] MEDS ORDERED: MORPHINE SULFATE 10 MG/ML INJ IV PRN (01:10)
--- NOTE | 2018-02-28 02:02 | Operative Report ---
Nonrecallable Operative Report DATE OF SURGERY: 02/28/18 PREOPERATIVE DIAGNOSIS: acute appendicitis POSTOPERATIVE DIAGNOSIS: same OPERATION: laparoscopic appendectomy SURGEON: ANNA MARIE YEE ANESTHESIA: GA - plus 20 mL lidocaine with epinephrine TISSUE REMOVED OR ALTERED: appendix COMPLICATIONS: none ESTIMATED BLOOD LOSS: < 5 mL INTRAOPERATIVE FINDINGS: acutely inflamed non-perforateed appendicitis PROCEDURE: see dictation
[2018-02-28] MEDS ORDERED: ONDANSETRON 4 MG TAB.RAPDIS ONE (02:17)
[2018-02-28] MEDS ORDERED: OXYCODONE-ACETAMINOPHEN 5-325 MG TABLET ONE (02:30)
[2018-02-28] MEDS ORDERED: NORMAL SALINE 1000 ML 1,000 ML IV PRN ×2 (02:32→08:48)
[2018-02-28] MEDS ORDERED: PIPERACILLIN/TAZOBACTAM 3.375 GM VIAL IV PRN (02:34)
[2018-02-28] MEDS ORDERED: OXYCODONE-ACETAMINOPHEN 5-325 MG TABLET PO ONE (02:45)
[2018-02-28] MEDS: PIPERACILLIN SODIUM/TAZOBACTAM 3.375 GM in NORMAL SALINE 100 ML IV SCH ×3 (05:28→17:19)
[2018-02-28] MEDS: MORPHINE SULFATE 10 MG/ML INJ IV PRN ×3 (05:29→12:35)
--- NOTE | 2018-02-28 08:43 | PDOC PROGRESS REPORT ---
Subjective Progress Note for:: 02/28/18 Subjective:: Patient feels nauseated Reason For Visit: ACUTE APPENDICITS Physical Exam Vital Signs: Temp Pulse Resp BP Pulse Ox 97.8 F 55 L 16 120/86 H 100 02/28/18 05:55 02/28/18 05:55 02/28/18 05:55 02/28/18 05:55 02/28/18 05:55 Intake & Output 02/27/18 02/28/18 03/01/18 06:59 06:59 06:59 Intake Total 3150 Output Total 25 Balance 3125 Weight 92.3 kg General appearance: PRESENT: no acute distress Respiratory exam: PRESENT: clear to auscultation claude Cardiovascular exam: PRESENT: RRR GI/Abdominal exam: PRESENT: soft, tenderness - at umbilical incision; all incisions are c/d/i Results Impressions: Abdomen/Pelvis CT 02/27/18 18:58 IMPRESSION: 1. Acute appendicitis. 2. Cholelithiasis. Assessment & Plan - Diagnosis (1) Acute appendicitis Qualifiers: Acute appendicitis type: with localized peritonitis Qualified Code(s): K35.3 - Acute appendicitis with localized peritonitis Is this a current diagnosis for this admission?: Yes - Plan Summary Plan Summary: A/ POD#0 after laparosocpic appendectomy fro acute appendicitis VSS, AF Good UO Blood work pending Abdomen soft P/ Decrease IVF Compazine for nausea discjharge in AM 7/5
[2018-02-28] MEDS: ENOXAPARIN SODIUM INJ 40 MG/0.4 ML DISP.SYRIN SUBCUT SCH (08:44)
[2018-02-28] MEDS ORDERED: KETOROLAC TROMETHAMINE 10 MG TABLET PO PRN (08:50)
[2018-02-28] MEDS: ONDANSETRON 4 MG TAB.RAPDIS PO PRN ×2 (12:19→17:19)
[2018-02-28] MEDS ORDERED: ROCURONIUM BROMIDE INJ 50 MG/5 ML VIAL IV ONE (14:26)
[2018-02-28] MEDS ORDERED: NEOSTIGMINE METHYLSULFATE 10 MG/10 ML VIAL ONE (14:26)
[2018-02-28] MEDS ORDERED: SUCCINYLCHOLINE CHLORIDE INJ 200 MG/10 ML VIAL ONE (14:26)
[2018-02-28] MEDS ORDERED: GLYCOPYRROLATE 1 MG/5 ML SYRINGE ONE (14:26)
[2018-02-28] MEDS ORDERED: TRAMADOL HCL 50 MG TABLET PO PRN (14:42)
[2018-02-28] MEDS: ACETAMINOPHEN 325 MG TABLET PO PRN (20:46)
[2018-03-01] MEDS: PIPERACILLIN SODIUM/TAZOBACTAM 3.375 GM in NORMAL SALINE 100 ML IV SCH ×5 (00:27→23:11)
[2018-03-01] MEDS: ACETAMINOPHEN 325 MG TABLET PO PRN ×4 (00:32→23:09)
[2018-03-01] MEDS: MORPHINE SULFATE 10 MG/ML INJ IV PRN ×2 (04:50→08:18)
[2018-03-01] MEDS: ENOXAPARIN SODIUM INJ 40 MG/0.4 ML DISP.SYRIN SUBCUT SCH (05:04)
[2018-03-01 05:30] LABS: HEMOGLOBIN 11.5 g/dL (12.0-15.5); MEAN CORPUSCULAR HEMOGLOBIN 31.7 pg (27.0-33.4); MEAN CORPUSCULAR HGB CONC 34.8 g/dL (32.0-36.0); MEAN CORPUSCULAR VOLUME 91 fl (80-97); PLATELET COUNT 161 10^3/uL (150-450); RED BLOOD COUNT 3.61 10^6/uL (3.72-5.28); RED CELL DISTRIBUTION WIDTH 13.6 % (11.5-14.0); WHITE BLOOD COUNT 5.1 10^3/uL (4.0-10.5)
[2018-03-01 05:52] LABS: ANION GAP 11 (5-19); BLOOD UREA NITROGEN 9 mg/dL (7-20); CALCIUM 8.8 mg/dL (8.4-10.2); CARBON DIOXIDE 27 mmol/L (22-30); CHLORIDE 104 mmol/L (98-107); GLUCOSE 66 mg/dL (75-110); SODIUM 141.7 mmol/L (137-145)
[2018-03-01] MEDS: ONDANSETRON 4 MG TAB.RAPDIS PO PRN (08:18)
--- NOTE | 2018-03-01 09:26 | OPERATIVE REPORT E ---
Operative Report NAME: LOIS LYNNE : 1980 AGE: 37Y DATE OF SURGERY: 02/27/2018 ROOM: 415 PREOPERATIVE DIAGNOSIS: ACUTE APPENDICITIS. POSTOPERATIVE DIAGNOSIS: ACUTE APPENDICITIS. OPERATION: Laparoscopic appendectomy. SURGEON: ANNA MARIE YEE M.D. SOCIAL SERVICES SPECIALIST: None. BLEEDING: None. COMPLICATIONS: None. DRAINS: None. URINE OUTPUT: n/a FLUIDS: 1000 INDICATION AND FINDINGS: This is a 37-year-old female with a 2-hour history of right lateral abdominal pain, intense nausea, vomiting, pelvic pain. An acute appendicitis was found on CAT scan and blood work showed mild leucocytosis. A decision was made to perform a laparoscopic appendectomy, possible open. DESCRIPTION OF PROCEDURE: The procedure was done in the operating room. The patient was placed in a supine position. General anesthesia induced by endotracheal intubation. Abdomen prepped and draped in the usual fashion. Incision was made in the area of the umbilicus. A 10 mm port with Optiview adapter and scope was inserted. However, the peritoneal cavity could not be entered. At this point, a Veress needle was inserted along the midclavicular line in the left upper quadrant. CO2 pneumoperitoneum was obtained. A 5 port was inserted in the left upper quadrant. Following this, under direct visualization, a 12 mm port was inserted in the umbilicus. A 5 mm port was inserted in the right upper quadrant and left lower quadrant of the abdomen. The patient was then placed in a Trendelenburg position with the right side elevated. The cecum was identified. The anterior tenia was followed and the appendix was identified and found to be inflamed and partially retrocecal. It was very well elevated and the mesoappendix was divided with Bovie. The appendix was then stapled at the base with the endo ESTELA with blue load, extracted from the peritoneal cavity in an Endobag. The CO2 pneumoperitoneum was reestablished. The staple line was inspected and found to be intact. A small amount of oozing was noted from the staple line. This was controlled by the application of a small piece of Surgicel. Under direct visualization, the umbilical defect was closed with [id number] 0 Vicryl suture using a fascial closure device and left untied. All instruments were removed. The CO2 pneumoperitoneum was released. The fascial defect of the umbilicus was closed with the already Vicryl [id number] suture. All skin incisions were closed with 4-0 Vicryl subcuticular suture and with Dermabond. The patient tolerated the procedure well, extubated, and transferred to the recovery room in satisfactory condition. DICTATING PHYSICIAN: ANNA MARIE YEE M.D. [id number] PHY#: [id number] ID: [id number] JOB#: [id number] ACCT: [id number] cc:ANNA MARIE YEE M.D. > MTDD
--- NOTE | 2018-03-01 10:05 | PDOC PROGRESS REPORT ---
Subjective Progress Note for:: 03/01/18 Subjective:: nauseated this AM after morphine Reason For Visit: ACUTE APPENDICITS Physical Exam Vital Signs: Temp Pulse Resp BP Pulse Ox 99.0 F 61 16 111/58 L 95 03/01/18 00:12 03/01/18 00:12 03/01/18 00:12 03/01/18 00:12 03/01/18 00:12 Intake & Output 02/28/18 03/01/18 03/02/18 06:59 06:59 06:59 Intake Total 3150 80224 Output Total 25 300 Balance 3125 12791 Weight 92.3 kg 101.3 kg General appearance: PRESENT: mild distress Respiratory exam: PRESENT: clear to auscultation claude Cardiovascular exam: PRESENT: RRR GI/Abdominal exam: PRESENT: soft, tenderness - at incisions, other - incisions C /D/I Results Laboratory Results: 03/01/18 04:21 03/01/18 04:21 03/01/18 03/01/18 04:21 04:21 WBC 5.1 RBC 3.61 L Hgb 11.5 L Hct 33.0 L MCV 91 MCH 31.7 MCHC 34.8 RDW 13.6 Plt Count 161 Sodium 141.7 Potassium 4.0 Chloride 104 Carbon Dioxide 27 Anion Gap 11 BUN 9 Creatinine 0.52 Est GFR ( Amer) > 60 Est GFR (Non-Af Amer) > 60 Glucose 66 L Calcium 8.8 Impressions: Abdomen/Pelvis CT 02/27/18 18:58 IMPRESSION: 1. Acute appendicitis. 2. Cholelithiasis. Assessment & Plan - Diagnosis (1) Acute appendicitis Qualifiers: Acute appendicitis type: with localized peritonitis Qualified Code(s): K35.3 - Acute appendicitis with localized peritonitis Is this a current diagnosis for this admission?: Yes - Plan Summary Plan Summary: A/ POD #2 after laparoscopic appendectomy for acute appendicitis VSS, AF WBC normal Nausea this AM after morphine injection P/ Stop narcotics Tylenol prn pain only Compazine IVP for nausea If nausea resolves, ok to d/c to home today Follow up in the office in 2 weeks ([facility] [place]) resume regular diet and meds Tylenol only for pain shower only x 2 weeks, then can bathe Activities as tolerated, no limitations No wound care needed OK to breastfeed
[2018-03-01] MEDS ORDERED: PROMETHAZINE HCL INJ 25 MG/1 ML VIAL IV PRN (10:08)
--- NOTE | 2018-03-01 10:40 | DISCHARGE SUMMARY E ---
Discharge Summary NAME: LOIS LYNNE : 1980 AGE: 37Y ADMITTED: 02/27/2018 DISCHARGED: 03/01/2018 FINAL DIAGNOSIS: Acute appendicitis. PROCEDURE: Laparoscopic appendectomy on February 27. COMPLICATIONS: None. HOSPITAL COURSE: This is a 37-year-old female 10 months who presented to the hospital with right upper quadrant pain. Acute appendicitis was found. The patient was taken to surgery late in the evening of February 27 and ended up in the silk printer February 28. Her procedure was uneventful. Postop course was uneventful as well with stable vital signs, normal white blood cell count, had been tolerating p.o. well. On the day of discharge, the patient presented with some nausea, most likely secondary to narcotics, which were discontinued. She was given some Phenergan with resolution of symptoms. DISCHARGE INSTRUCTIONS: The patient was then discharged home on March 01, 2018. She was given a followup appointment in the office in about 2 weeks. Tylenol p.r.n. 50 mg q. 6 for pain. Shower only for 2 weeks. Regular diet and no restriction of activities. No wound care needed. Rest of medications and diet p.o. DICTATING PHYSICIAN: ANNA MARIE YEE M.D. [id number] PHY#: [id number] ID: [id number] JOB#: [id number] ACCT: [id number] cc:ANNA MARIE YEE M.D. EAta Ata [facility], [place], [facility]
[2018-03-01] MEDS ORDERED: PROMETHAZINE HCL INJ 25 MG/1 ML VIAL IV ONE (11:00)
[2018-03-01] MEDS ORDERED: METOCLOPRAMIDE HCL INJ/PF 10 MG/2 ML SDV IV PRN (16:42)
[2018-03-01] MEDS ORDERED: MAG HYDROX/AL HYDROX/SIMETH SUSP 30 ML UDCUP PO PRN (16:43)
[2018-03-01] MEDS ORDERED: NORMAL SALINE 1000 ML 1,000 ML IV PRN (16:44)
[2018-03-01] MEDS: SUCRALFATE 1 GM TABLET PO SCH ×2 (18:01→23:08)
[2018-03-01] MEDS: FAMOTIDINE INJ/PF 20 MG/2 ML SDV IV SCH (18:01)
[2018-03-02] MEDS: PIPERACILLIN SODIUM/TAZOBACTAM 3.375 GM in NORMAL SALINE 100 ML IV SCH (05:20)
[2018-03-02] MEDS: FAMOTIDINE INJ/PF 20 MG/2 ML SDV IV SCH (05:20)
[2018-03-02] MEDS: SUCRALFATE 1 GM TABLET PO SCH ×2 (05:21→10:47)
[2018-03-02 05:39] LABS: HEMATOCRIT 32.8 % (36.0-47.0); HEMOGLOBIN 11.5 g/dL (12.0-15.5); MEAN CORPUSCULAR HEMOGLOBIN 32.1 pg (27.0-33.4); MEAN CORPUSCULAR HGB CONC 34.9 g/dL (32.0-36.0); MEAN CORPUSCULAR VOLUME 92 fl (80-97); PLATELET COUNT 140 10^3/uL (150-450); RED BLOOD COUNT 3.58 10^6/uL (3.72-5.28); RED CELL DISTRIBUTION WIDTH 13.2 % (11.5-14.0); WHITE BLOOD COUNT 4.4 10^3/uL (4.0-10.5)
[2018-03-02 06:02] LABS: ANION GAP 10 (5-19); BLOOD UREA NITROGEN 11 mg/dL (7-20); CALCIUM 8.8 mg/dL (8.4-10.2); CARBON DIOXIDE 27 mmol/L (22-30); CHLORIDE 106 mmol/L (98-107); GLUCOSE 74 mg/dL (75-110); POTASSIUM 3.9 mmol/L (3.6-5.0); SODIUM 142.8 mmol/L (137-145)
[2018-03-02] MEDS: ENOXAPARIN SODIUM INJ 40 MG/0.4 ML DISP.SYRIN SUBCUT SCH (08:22)
[2018-03-02] MEDS ORDERED: HYDROCODONE/ACETAMINOPHEN 5-325 MG TABLET PO PRN (10:14)
[2018-03-02 12:20] VITALS: BP 117/65
--- NOTE | 2018-03-02 14:52 | PDOC DISCHARGE SUMMARY ---
General - Admit/Disc Date/PCP Admission Date/Primary Care Provider: 03/01/18 18:00 LIZZ DEMPSEY MD Discharge Date: 03/02/18 - Discharge Diagnosis (1) Acute appendicitis Is this a current diagnosis for this admission?: Yes - Additional Information Discharge Diet: Regular Discharge Activity: No Lifting Over 10 Pounds, No tub bath, Other Home Medications: Acetaminophen [Tylenol 325 mg Tablet] 325 mg PO Q4HP PRN tablet 03/01/18 History of Present Illness History of Present Illness: LOIS LYNNE is a 37 year old female admitted to the hospital for acute appendicitis. The patient was taken to the operating room for definitive surgical care. Patient underwent laparoscopic appendectomy, and did well. She was transferred to the floor in stable condition. Hospital Course Hospital Course: The patient was transferred to the floor after laparoscopic appendectomy. Her appendix was found to be nonperforated. The patient had nausea and vomiting on postoperative day #1. Patient feels it may be medication related. Her pain medication was changed, and she began feeling better. By 03/02/2018 the patient was ambulating, tolerating a diet, having no nausea, and it was felt that she had reached maximal hospital benefit. This time she is fit for discharge. Physical Exam Vital Signs: Temp Pulse Resp BP Pulse Ox 98.3 F 45 L 16 117/65 97 03/02/18 11:24 03/02/18 11:24 03/02/18 11:24 03/02/18 11:24 03/02/18 11:24 Intake & Output 03/01/18 03/02/18 03/03/18 06:59 06:59 06:59 Intake Total 2383 420 Output Total 400 1999 Balance 1982158 Weight 101.6 kg Results Laboratory Results: 03/02/18 05:12 03/02/18 05:12 03/02/18 03/02/18 05:12 05:12 WBC 4.4 RBC 3.58 L Hgb 11.5 L Hct 32.8 L MCV 92 MCH 32.1 MCHC 34.9 RDW 13.2 Plt Count 140 L Sodium 142.8 Potassium 3.9 Chloride 106 Carbon Dioxide 27 Anion Gap 10 BUN 11 Creatinine 0.47 L Est GFR ( Amer) > 60 Est GFR (Non-Af Amer) > 60 Glucose 74 L Calcium 8.8 Impressions: Abdomen/Pelvis CT 02/27/18 18:58 IMPRESSION: 1. Acute appendicitis. 2. Cholelithiasis. Qualifiers - * PATIENT BEING DISCHARGED WITH ANY OF THE FOLLOWING DIAGNOSIS: No Plan Time Spent: Less than 30 Minutes
== END 2018-03-02 15:45 | disposition home or self-care (01) | DRG 340 ==
LOC: ER 16:27 → EH 23:14 → 4N 02-28 02:52 → OBSVTOIN 03-01 18:00
PROVIDERS: ADMIT Surgery; ATTEND Surgery
PROC: 0DTJ4ZZ Resection of Appendix, Percutaneous Endoscopic Approach (ICD-10-PCS; principal; 2018-02-27)
DX: K35.3 Acute appendicitis with localized peritonitis (principal); K80.20 Calculus of gallbladder without cholecystitis without obstruction; J45.909 Unspecified asthma, uncomplicated; E28.2 Polycystic ovarian syndrome; Z88.8 Allergy status to other drugs, medicaments and biological substances; Z88.6 Allergy status to analgesic agent; Z91.011 Allergy to milk products
CPT/HCPCS: 36415; 74177; 80048; 80053; 81001; 81025; 83690; 840; 85025; 85027; 88304; 96361; 96365; 96375; 99285; G0378; J0131; J0330; J1170; J2250; J2270; J2543; J2550; J2704; J2765; J3010; J3490; J7030; S0028; S0119